=== PATIENT | male | born 1940 | race Two or more races ===

== ENCOUNTER 2018-05-19 09:33 | Emergency (ER) | payer OTHER ==
[~2018-05-19] VITALS: Ht 170.2 cm; Wt 77.1 kg
[2018-05-19 10:43] LABS: Basophils # (auto) 0 uL; Basophils % (auto) 0.4 % (0.0-2.0); Eosinophils # (auto) 0 uL; Eosinophils % (auto) 0.5 % (0.0-7.0); Hemoglobin 14.1 g/dL (13.5-17.5); Lymphocytes # (auto) 0.3 uL; Mean Corpuscular Hemoglobin 28.8 pg (28.0-32.0); Mean Corpuscular Hgb Conc. 33.5 g/dL (32.0-36.0); Monocytes # (auto) 0.3 uL; Monocytes % (auto) 5.6 % (0.0-12.0); Neutrophils # (auto) 5.1 uL; Neutrophils % (auto) 87.5 % (37.0-80.0); Platelet Count (auto) 199 10^3/uL (140-450); Red Blood Cells 4.89 10^6/uL (4.5-5.90); Red Cell Distribution Width 14.2 % (11.8-14.3); White Blood Cell 5.8 10^3/uL (4.4-10.8)
[2018-05-19 11:02] LABS: Alanine Aminotransferase 37 U/L (16-61); Albumin 3.5 g/dL (3.4-5.0); Anion Gap 7 (5-15); Aspartate Aminotransferase 24 U/L (15-37); BUN/Creatinine Ratio 17.5; Blood Urea Nitrogen 24 mg/dL (7-18); Calcium 7.9 mg/dL (8.5-10.1); Carbon Dioxide 22 mmol/L (21-32); Chloride 109 mmol/L (98-107); GFR Non-African American 54 mL/min; Glucose 107 mg/dL (74-106); Magnesium 2.1 mg/dL (1.6-2.6); Sodium 138 mmol/L (136-145)
[2018-05-19 11:07] LABS: Alkaline Phosphatase 90 U/L (45-117); Bilirubin, Total 0.4 mg/dL (0.2-1.0); Total Protein 7.2 g/dL (6.4-8.2)
[2018-05-19 11:08] LABS: GFR African American > 60 mL/min
[2018-05-19 11:36] LABS: Urine Bacteria NONE SEEN /hpf (None Seen); Urine Blood TRACE /uL (Negative); Urine Mucus FEW (None Seen); Urine Specific Gravity 1.027 (1.001-1.035); Urine WBC <1 /hpf (0 - 3)
[2018-05-19] MEDS ORDERED: SODIUM CHLORIDE 0.9% 1,000 ML IV ONE (12:12)
[2018-05-19 13:45] VITALS: BP 155/60
== END 2018-05-19 13:56 | disposition home or self-care (01) ==
LOC: ER 09:33
DX: E86.0 Dehydration (principal); R11.2 Nausea with vomiting, unspecified
CPT/HCPCS: 36415; 74176; 80053; 81001; 83735; 84484; 85025; 93005; 96360; 99284; J7030

== ENCOUNTER 2022-09-07 15:56 | Emergency (ER) | payer OTHER ==
[~2022-09-07] VITALS: Ht 170.2 cm; Wt 77.9 kg
[2022-09-07 16:15] VITALS: BP 176/71
[2022-09-07 16:51] LABS: Basophils # (auto) 0 10 ^3/uL (0-0.2); Basophils % (auto) 0.9 % (0.0-2.0); Eosinophils # (auto) 0.2 10 ^3/uL (0-0.8); Eosinophils % (auto) 3.2 % (0.0-7.0); Hematocrit 38.5 % (41.0-53.0); Hemoglobin 12.8 g/dL (13.5-17.5); Lymphocytes # (auto) 1.8 10 ^3/uL (0.4-5.4); Mean Corpuscular Hemoglobin 28.7 pg (28.0-32.0); Mean Corpuscular Hgb Conc. 33.2 g/dL (32.0-36.0); Mean Corpuscular Volume 86.4 fL (80.0-100.0); Monocytes # (auto) 0.4 10 ^3/uL (0-1.3); Monocytes % (auto) 8.1 % (0.0-12.0); Neutrophils # (auto) 2.8 10 ^3/uL (1.6-8.6); Neutrophils % (auto) 53.8 % (37.0-80.0); Nucleated Red Blood Cells % 0.1 %; Red Blood Cells 4.46 10^6/uL (4.5-5.90); Red Cell Distribution Width 13.9 % (11.8-14.3); White Blood Cell 5.2 10^3/uL (4.4-10.8)
[2022-09-07 17:08] LABS: Albumin 3.5 g/dL (3.4-5.0); Calcium 8.3 mg/dL (8.5-10.1); Magnesium 2.5 mg/dL (1.6-2.6); Potassium 3.9 mmol/L (3.5-5.1)
[2022-09-07 17:11] LABS: BUN/Creatinine Ratio 27.9 (10.0-20.0); Bilirubin, Total 0.2 mg/dL (0.2-1.0); Total Protein 7.2 g/dL (6.4-8.2)
[2022-09-07 18:33] LABS: Urine Bacteria NONE SEEN /hpf (None Seen); Urine Blood Negative /uL (Negative); Urine Specific Gravity 1.011 (1.001-1.035); Urine WBC 1 /hpf (0 - 3)
== END 2022-09-07 19:01 | disposition home or self-care (01) ==
LOC: ER 15:56
DX: R10.11 Right upper quadrant pain (principal)
CPT/HCPCS: 36415; 74176; 80053; 81001; 83690; 83735; 85025; 93005

== ENCOUNTER 2022-09-11 09:34 | Emergency (ER) | payer OTHER ==
[~2022-09-11] VITALS: Ht 170.2 cm; Wt 76.3 kg
[2022-09-11 10:00] VITALS: BP 147/89
[2022-09-11] MEDS ORDERED: TRIA0.02 TOP (10:18)
[2022-09-11] MEDS ORDERED: IBUP800T27 PO ×2 (10:18)
[2022-09-11] MEDS ORDERED: ACETAMINOPHEN 500 MG TAB PO ONE (10:30)
[2022-09-11] MEDS ORDERED: TRAM50TA2 PO (10:31)
== END 2022-09-11 10:38 | disposition home or self-care (01) ==
LOC: ER 09:34
DX: B02.9 Zoster without complications (principal)

== ENCOUNTER 2024-09-28 20:53 | Emergency (ER) | payer MEDICARE, OTHER ==
[~2024-09-28 20:53] MED LIST: TRAM50TA2 PO; TRIA0.02 TOP
--- NOTE | 2024-09-28 21:08 | ED.PDOC ---
History of Present Illness HPI Comments 84-year-old male who comes in with chief complaint of urinary retention. The patient states that he had prostate surgery on 07/13 and states that the Figueroa catheter has been inserted and removed a few times. The patient was saw his urologist yesterday and they did remove the Figueroa catheter but now the patient can not urinate. Despite trying in and out catheters does not seem to be working. At this time, the patient denies any other complaints. There has been no fever or chills. Time Seen by MD: 20:55 Primary Care Provider: Adilson Reviewed Notes: Nurses Notes, Medications, Allergies (No allergies to medications) Allergies: Coded Allergies: NO KNOWN ALLERGIES (Unverified , 05/19/18) Home Meds Active Scripts Tramadol Hcl (Tramadol Hcl) 50 Mg Tab, 50 MG PO BID, #20 TAB Prov:VESNA LARKIN 09/11/22 Triamcinolone Acetonide (Triamcinolone Acetonide) 0.025 % Cre, 1 APPLIC TOP BID, #30 GRAMS Prov:VESNA LARKIN 09/11/22 Information Source: Patient Mode of Arrival: Ambulatory Severity: Moderate Timing: Hours Duration: Since onset Prehospital treatment: None Associated signs and symptoms Urinary retention Past Medical History Past Medical History (Other): BPH Surgical History: Cholecystectomy Family History Family History: No family hx of Cancer, No family hx of DM, No family hx of Heart thais Social History Smoker: Non-Smoker Alcohol: Denies ETOH Use Drugs: Denies Drug Use Lives In: Home Constitutional: denies: chills, diaphoresis, fatigue, fever, malaise, sweats, weakness, others EENTM: denies: blurred vision, double vision, ear bleeding, ear discharge, ear drainage, ear pain, ear ringing, eye pain, eye redness, hearing loss, mouth pain, mouth swelling, nasal discharge, nose bleeding, nose congestion, nose pain, photophobia, tearing, throat pain, throat swelling, voice changes, others Respiratory: denies: cough, hemoptysis, orthopnea, SOB at rest, shortness of breath, SOB with excertion, stridor, wheezing, others Cardiovascular: denies: chest pain, dizzy spells, diaphoresis, Dyspnea on exertion, edema, irregular heart beat, left arm pain, lightheadedness, palpitations, PND, syncope, others Gastrointestinal: denies: abdomen distended, abdominal pain, blood streaked bowels, constipated, diarrhea, dysphagia, difficulty swallowing, hematemesis, melena, nausea, poor appetite, poor fluid intake, rectal bleeding, rectal pain, vomiting, others Genitourinary: reports: others (Urinary retention); denies: burning, dysuria, flank pain, frequency, hematuria, incontinence, penile discharge, penile sore, pain, testicle pain, testicle swelling, urgency Neurological: denies: dizziness, fainting, headache, left sided numbness, left sided weakness, numbness, paresthesia, pre-existing deficit, right sided numbness, right sided weakness, seizure, speech problems, tingling, tremors, weakness, others Musculoskeletal: denies: back pain, gout, joint pain, joint swelling, muscle pain, muscle stiffness, neck pain, others Integumetry: denies: bruises, change in color, change in hair/nails, dryness, laceration, lesions, lumps, rash, wounds, others Allergic/Immunocompromised: denies: Difficulty Healing, Frequent Infections, Hives, Itching, others Hematologic/Lymphatic: denies: anemia, blood clots, easy bleeding, easy bruising, swollen glands, others Endocrine: denies: excessive hunger, excessive sweating, excessive thirst, excessive urination, flushing, intolerance to cold, intolerance to heat, unexplained weight gain, unexplained weight loss, others Psychiatric: denies: anxiety, bipolar disorder, depression, hopeless, panic disorder, schizophrenia, sleepless, suicidal, others Physical Exam General Appearance: Mild Distress HEENT: Normal ENT Inspection, Pharynx Normal, TMs Normal Neck: Full Range of Motion, Non-Tender, Normal, Normal Inspection Respiratory: Chest Non-Tender, Lungs Clear, No Accessory Muscle Use, No Respiratory Distress, Normal Breath Sounds Cardiovascular: No Edema, No JVD, No Murmur, No Gallop, Normal Peripheral Pulses, Regular Rate/Rhythm Breast Exam: Deferred Gastrointestinal: No Organomegaly, No Pulsatile Mass, Normal Bowel Sounds, Soft, Suprapubic, Tenderness Genitalia: Deferred Pelvic: Deferred Rectal: Deferred Extremities: No calf tenderness, Normal capillary refill, Normal inspection, No rmal range of motion, Non-tender, No pedal edema Musculoskeletal : Apperance: Normal Neurologic: Alert, waste baler II-XII nml as Tested, No Motor Deficits, Normal Affect, Normal Mood, No Sensory Deficits Cerebellar Function: Normal Reflexes: Normal Skin: Dry, Normal Color, Warm Lymphatic: No Adenopathy Was a procedure done? Was a procedure done?: No Differential Dx Considerations may include: Urinary retention, UTI X-Ray, Labs, Meds, VS The patient was having a Figueroa catheter placed The patient had approximately 300 cc of urine output The patient was discharged The patient was follow up with the primary care doctor The patient will return to the emergency department's condition worsens. Time of 1ST Reevaluation: 21:05 Reevaluation 1ST: Improved Patient Education/Counseling: Diagnosis, Treatment, Prognosis, Need For Follow Up Family Education/Counseling: Diagnosis, Treatment, Prognosis, Need For Follow Up Departure 1 Departure Time of Disposition: 21:05 Impression: Primary Impression: Urinary retention Disposition: 01 HOME / SELF CARE / HOMELESS Condition: Fair Discharged With: Self, Spouse Critical Care Note Critical Care Time?: No Stability Stability form required: No Heart Score Heart Score: Heart Score Response (Comments) Value History N/A 0 EKG N/A 0 Age N/A 0 Risk Factors N/A 0 Troponin N/A 0 Total 0 BOSSMAN LOCKE MD September 28, 2024 21:08
[2024-09-28 21:15] VITALS: BP 125/69; PULSE 71; RESP 18; TEMP 97.5; O2SAT 94
[2024-09-28 21:35] LABS: Urine Bacteria None Seen /hpf (None Seen)
[2024-09-28 21:42] LABS: Urine Blood 3+ /uL (Negative); Urine Clarity Clear (Clear); Urine Color Light-Yellow (Yellow); Urine Mucus FEW (None Seen); Urine Protein, UAD TRACE (Negative); Urine Specific Gravity 1.025 (1.001-1.035); Urine Squamous Epithelial Cell None Seen /hpf (<5); Urine Urobilinogen Normal (Negative); Urine WBC 6 /HPF (0-3); Urine pH 5.5 (5.0-9.0)
== END 2024-09-28 21:33 | disposition home or self-care (01) ==
LOC: ER 20:53
DX: R33.9 Retention of urine, unspecified (principal); Z90.49 Acquired absence of other specified parts of digestive tract; Z87.898 Personal history of other specified conditions; Z79.899 Other long term (current) drug therapy
CPT/HCPCS: 51702; 81001

== ENCOUNTER 2024-10-29 00:41 | Inpatient (IN) | payer MEDICARE ==
[~2024-10-29] VITALS: Ht 167.6 cm; Wt 82.6 kg
[2024-10-29 01:49] LABS: Chloride 105 mmol/L (98-107); Potassium 3.7 mmol/L (3.5-5.1); Sodium 139 mmol/L (136-145)
[2024-10-29 01:50] LABS: Anion Gap 15 (5-15)
[2024-10-29 01:51] LABS: Calcium 9.2 mg/dL (8.7-10.4)
[2024-10-29] MEDS: fentaNYL CITRATE 100 MCG/2 ML VL IV ONE (01:51)
[2024-10-29 01:55] LABS: BUN/Creatinine Ratio 18.9 (10.0-20.0)
--- NOTE | 2024-10-29 01:59 | ED.PDOC ---
General HPI Comments 84 y/o M presents with c/c of urinary retention, with associated pelvic and back pain. Patient endorses on onset of symptoms 2-3 hours ago prior to arrival. Patient has a Figueroa catheter in place that is 4x months old. Pain is an 8/10 in severity. Denies any nausea, vomiting, hematuria, or further acute associated symptoms. Chief Complaint: Urinary Time Seen by MD: 01:10 Primary Care Provider: Dr. Chowdhury Reviewed notes: Nurses Notes, Medications, Allergies Allergies: Coded Allergies: NO KNOWN ALLERGIES (Unverified , 05/19/18) Home Meds Active Scripts Tramadol Hcl (Tramadol Hcl) 50 Mg Tab, 50 MG PO BID, #20 TAB Prov:VESNA LARKIN 09/11/22 Triamcinolone Acetonide (Triamcinolone Acetonide) 0.025 % Cre, 1 APPLIC TOP BID, #30 GRAMS Prov:VESNA LARKIN 09/11/22 Information Source: Patient Mode of Arrival: Ambulatory Severity: Moderate Inability to void: Complete Timing: Hours Duration: Since onset Prehospital treatment: None Onset: Spontaneous Symptoms: Inability to void, Other (pelvic and back pain ) Past Medical History Past Medical History (Other): BPH Surgical History: Cholecystectomy Surgical History (Other): Figueroa catheter Family History Family History: No family hx of Cancer, No family hx of DM, No family hx of Heart thais Social History Smoker: Non-Smoker Alcohol: Denies ETOH Use Drugs: Denies Drug Use Lives In: Home All Other Systems: Reviewed and Negative (Comprehensive systems review obtained and negative except for what is stated in the HPI.) Physical Exam General Appearance: No Apparent Distress, Normal HEENT: Normal ENT Inspection, Pharynx Normal, TMs Normal Neck: Full Range of Motion, Non-Tender, Normal, Normal Inspection Respiratory: Chest Non-Tender, Lungs Clear, No Accessory Muscle Use, No Respiratory Distress, Normal Breath Sounds Cardiovascular: No Edema, No JVD, No Murmur, No Gallop, Normal Peripheral Pulses, Regular Rate/Rhythm Breast Exam: Deferred Gastrointestinal: No Organomegaly, No Pulsatile Mass, Normal Bowel Sounds, Soft, Suprapubic (fullness and tenderness ), Tenderness (suprapubic region ) Genitalia: Other (in-place Figueroa catheter, with 30-40ml clear urine ) Pelvic: Deferred Rectal: Deferred Extremities: No calf tenderness, Normal capillary refill, Normal inspection, Normal range of motion, Non-tender, No pedal edema Musculoskeletal : Apperance: Normal Neurologic: Alert, accounting office manager II-XII nml as Tested, No Motor Deficits, Normal Affect, Normal Mood, No Sensory Deficits Cerebellar Function: Normal Reflexes: Normal Skin: Dry, Normal Color, Warm Lymphatic: No Adenopathy Was a procedure done? Was a procedure done?: No Differential Diagnosis Kidney stone (Female): N/A Kidney stone (Male): Aortic dissection, Appendicitis train, Bowel obstruction, Pyelonephritis, Renal failure, Strain, Urinary obstruction, Urolithiasis, Renal infarction, Urinary tract infection Penile/Scrotal: N/A Urinary Problem (Male): Bladder Outlet, Bladder Obstruction, Prostatitis, Plelonephritis, Post op Complications, Renal Failure, Urinary Retention, Urolithiasis, UTI Urinary Problem (Female): N/A X-Ray, Labs, Meds, VS Vital Signs Date Time Temp Pulse Resp B/P (MAP) Pulse Ox O2 Delivery O2 Flow Rate FiO2 10/29/24 03:48 100.3 100.3 10/29/24 03:37 101.4 111 18 135/82 (99) 96 101.4 10/29/24 03:07 101.4 97 18 135/60 (85) 96 101.4 10/29/24 02:13 78 18 96 Room Air* 0 21 10/29/24 02:13 101.0 68 18 118/78 (91) 97 101.0 10/29/24 01:54 102.2 89 19 112/63 (79) 90 102.2 10/29/24 00:55 98.8 103 20 141/72 (95) 94 98.8 Lab Test 10/29/24 03:20 10/29/24 01:17 10/29/24 01:13 Range/Units Lactic Acid Level Pending 4.4 *H 0.4-2.0 mmol/L White Blood Count 2.4 L 4.4-10.8 10^3/uL Red Blood Count 4.89 4.5-5.90 10^6/uL Hemoglobin 13.8 13.5-17.5 g/dL Hematocrit 41.8 41.0-53.0 % Mean Corpuscular Volume 85.6 80.0-100.0 fL Mean Corpuscular Hemoglobin 28.2 28.0-32.0 pg Mean Corpuscular Hemoglobin Concent 32.9 32.0-36.0 g/dL Red Cell Distribution Width 15.2 H 11.8-14.3 % Platelet Count 193 140-450 10^3/uL Mean Platelet Volume 8.5 6.9-10.8 fL Neutrophils (%) (Auto) 57.9 37.0-80.0 % Lymphocytes (%) (Auto) 39.5 10.0-50.0 % Monocytes (%) (Auto) 0.6 0.0-12.0 % Eosinophils (%) (Auto) 1.6 0.0-7.0 % Basophils (%) (Auto) 0.4 0.0-2.0 % Neutrophils # (Auto) 1.4 L 1.6-8.6 10 ^3/uL Lymphocytes # (Auto) 0.9 0.4-5.4 10 ^3/uL Monocytes # (Auto) 0 0-1.3 10 ^3/uL Eosinophils # (Auto) 0 0-0.8 10 ^3/uL Basophils # (Auto) 0 0-0.2 10 ^3/uL Nucleated Red Blood Cells 0.8 % Sodium Level 140 136-145 mmol/L Potassium Level 4.0 3.5-5.1 mmol/L Chloride Level 105 98-107 mmol/L Carbon Dioxide Level 20 20-31 mmol/L Anion Gap 15 5-15 Blood Urea Nitrogen 32 H 9-23 mg/dL Creatinine 1.42 H 0.700-1.30 mg/dL Glomerular Filtration Rate Calc 49 >90 mL/min BUN/Creatinine Ratio 22.5 H 10.0-20.0 Serum Glucose 111 H 74-106 mg/dL Calcium Level 9.0 8.7-10.4 mg/dL Total Bilirubin 0.3 0.2-1.0 mg/dL Aspartate Amino Transferase (AST) 26 <34 U/L Alanine Aminotransferase (ALT) 20 7-40 U/L Alkaline Phosphatase 120 H 46-116 U/L Total Protein 7.5 5.7-8.2 g/dL Albumin 4.7 3.2-4.8 g/dL Urine Color Colorless Yellow Urine Clarity Turbid H Clear Urine pH 5.5 5.0-9.0 Urine Specific [place] 1.015 1.001-1.035 Urine Protein Negative Negative Urine Ketones Negative Negative Urine Blood 2+ H Negative /uL Urine Nitrite 1+ H Negative Urine Bilirubin Negative Negative Urine Urobilinogen Normal Negative mg/dL Urine Leukocyte Esterase 3+ Negative /uL Urine RBC 31 0 - 3 /hpf Urine Microscopic WBC 46 H 0-3 /HPF Urine Squamous Epithelial Cells None seen <5 /hpf Urine Uric Acid Crystals Few None Seen /hpf Urine Bacteria Many H None Seen /hpf Urine Glucose Normal Normal mg/dL Current Medications Medications (Trade) Dose Ordered Sig/Nabila Route Start Time Stop Time Status Last Admin Acetaminophen (Tylenol Tablet) 650 mg ONCE ONCE PO 10/29/24 02:00 10/29/24 02:01 DC 10/29/24 02:00 Lactated Ringer's 2,000 ml @ 2,000 mls/hr ONCE ONCE IV 10/29/24 02:00 10/29/24 02:59 DC 10/29/24 02:00 Vancomycin HCl 200 ml @ 200 mls/hr ONCE ONCE IV 10/29/24 02:00 10/29/24 02:59 DC 10/29/24 02:00 Time of 1ST Reevaluation: 01:40 Reevaluation 1ST: Unchanged Patient Education/Counseling: Diagnosis, Treatment, Need For Follow Up Family Education/Counseling: No Family Present Additional Information Previous visits reviewed: September 28, 2024 encounter for urinary retention The following tests were ordered, and results were reviewed by me: CT abdomen/pelvis w/o contrast, UA, BMP, UA Additional Information was gathered from interviewing the following independent historians: N/A I reviewed and agreed with the following test results read by other providers: CT abdomen/pelvis w/o contrast I discussed treatment and results with medical personnel and: patient SEPSIS Sepsis Screen Date sepsis recognized/suspect: Oct 29, 2024 Time Sepsis recognized/suspect: 54 Recent Procedure: No On Antibiotic Therapy: No Respiratory Rate >20: No Heart Rate >90: Yes Temp<36 C (96.8 F) or >38.3 C: No SBP <90 or MAP <65 mmHG: No New Acute Mental Status Change: No Is the patient on CPAP, BIPAP,: No Physician Orders Ct Ab Pel Wo Con-No Oral Or Iv (10/29/24 01:23) Chest Portable (10/29/24 02:00) Accucheck (10/29/24 02:00) Blood Culture (10/29/24 02:00) Cefepime 1gm/ 50ml (Maxipime 1gm/50ml) (10/29/24 10:00) Notify Md If Map <65 Or Bp<90 (10/29/24 02:00) If Map<65 Start Vasopressor (10/29/24 02:00) Vital Signs Date Time Temp Pulse Resp B/P (MAP) Pulse Ox O2 Delivery O2 Flow Rate FiO2 10/29/24 03:48 100.3 100.3 10/29/24 03:37 101.4 111 18 135/82 (99) 96 101.4 10/29/24 03:07 101.4 97 18 135/60 (85) 96 101.4 10/29/24 02:13 78 18 96 Room Air* 0 21 10/29/24 02:13 101.0 68 18 118/78 (91) 97 101.0 10/29/24 01:54 102.2 89 19 112/63 (79) 90 102.2 10/29/24 00:55 98.8 103 20 141/72 (95) 94 98.8 Laboratory Tests Test 10/29/24 01:17 10/29/24 03:20 Lactic Acid Level 4.4 mmol/L (0.4-2.0) *H Pending White Blood Count 2.4 10^3/uL (4.4-10.8) L Medications Medications Dose Ordered Sig/Nabila Route Start Time Stop Time Status Last Admin Dose Admin Acetaminophen 650 mg ONCE ONCE PO 10/29/24 02:00 10/29/24 02:01 DC 10/29/24 02:00 Lactated Ringer's 2,000 ml @ 2,000 mls/hr ONCE ONCE IV 10/29/24 02:00 10/29/24 02:59 DC 10/29/24 02:00 Vancomycin HCl 200 ml @ 200 mls/hr ONCE ONCE IV 10/29/24 02:00 10/29/24 02:59 DC 10/29/24 02:00 Reassessment Post Fluid SEPSIS FOCUS EXAM(REASSESSMENT Sepsis reassessment focused exam completed. Date: 10/29/24 Time 02:38 Sepsis reassessment focused exam completed. Date: 10/29/24 Time 02:01 Departure 1 Departure Time of Disposition: 02:40 Impression: Primary Impression: Sepsis Qualified Codes: A41.9 - Sepsis, unspecified organism; R65.20 - Severe sepsis without septic shock; N17.9 - Acute kidney failure, unspecified Additional Impressions: Pelvic pain UTI (urinary tract infection) Qualified Codes: N30.00 - Acute cystitis without hematuria Disposition: ADMITTED INPATIENT Admit to: Med Surg Condition: Serious Discharged With: Self, Relative Critical Care Note Critical Care Time?: Yes (55 min-critical care time only) Critical care comment: Due to concerns for patients condition deteriorating, the care required my highest level of attention and readiness to intervene. I assessed the patient, reviewed the medical records, ordered the appropriate tests and treatments, then reassessed for results and responsiveness. I communicated with medical personnel and consultants and formulated a plan of care. Total critical care time excludes any procedures Stability Stability form required: No Heart Score Heart Score: Heart Score Response (Comments) Value History N/A 0 EKG N/A 0 Age N/A 0 Risk Factors N/A 0 Troponin N/A 0 Total 0 I personally scribed for LAYLA ADRIAN MD ([email or web address]) on 10/29/24 at 01:59. Electronically submitted by Ray Escobedo ([email or web address]). LAYLA ADRIAN MD Oct 29, 2024 01:59
[2024-10-29] MEDS: LACTATED RINGER'S 2,000 ML IV ONE (02:00)
[2024-10-29] MEDS: VANCOMYCIN 1GM/200ML PM 200 ML IV ONE (02:00)
[2024-10-29] MEDS: ACETAMINOPHEN 325 MG TAB PO ONE (02:00)
[2024-10-29 02:01] LABS: Blood Urea Nitrogen 27 mg/dL (9-23); Carbon Dioxide 19 mmol/L (20-31); Glucose 110 mg/dL (74-106)
[2024-10-29 02:13] VITALS: PULSE 78; RESP 18; O2SAT 96
[2024-10-29 02:29] LABS: Urine Protein, UAD Negative (Negative)
--- NOTE | 2024-10-29 02:31 | DVH ---
CHEST RADIOGRAPH Indication: sepsis Technique: Single frontal view of the chest was obtained COMPARISON: None FINDINGS: Lines and Tubes: None Lungs: Clear Pleura: No effusion. No pneumothorax. Cardiomediastinal contours: Unremarkable Bones: Unremarkable IMPRESSION: 1. No acute disease.
--- NOTE | 2024-10-29 02:35 | DVH ---
Exam: CT CT AB PEL WO CON-NO ORAL OR IV History: lower abdominal pain Comparison Study: CT CT AB PEL WO CON-NO ORAL OR IV on DOS: 09/07/22 Technique: Multidetector spiral CT of the abdomen was performed from lung bases to pubic symphysis. I maging was performed without IV contrast. Axial, coronal and sagittal multiplanar reformats were obta ined from the axial data set by the technologist. Radiation Dose : 1. Abdomen/Pelvis: CTDIvol 12.58 mGy, DLP 684.14 mGy*cm. Findings: Evaluation of solid organs is limited due to lack of intravenous contrast use. Lung Bases: No acute or significant lung base finding. Borderline cardiomegaly. No pleural or perica rdial effusion. Liver: The liver is mildly enlarged, measuring 19.2 cm in craniocaudal dimension. No focal lesions. Gallbladder and Biliary Tree: Status post cholecystectomy. Spleen: Unremarkable Pancreas: The pancreas is grossly normal in appearance. Adrenal Glands: Unremarkable Kidneys: Mild bilateral renal atrophy and cortical thinning.Kidneys are otherwise grossly normal with out calculi or hydronephrosis. Multiple bilateral renal cortical cysts, the largest of which measures 8.6 cm on the right. Bladder: Grossly unremarkable for degree of distention. Figueroa catheter. Bowel: Small hiatal hernia. The stomach is grossly normal in appearance. Small bowel and colon are no rmal in caliber and distribution. The appendix is normal. Ascites: Absent Lymphadenopathy: No mesenteric, retroperitoneal or periportal lymphadenopathy. Abdominal Wall and Mesentery: Unremarkable. Vasculature: The visualized abdominal aorta is normal in size and caliber. Atherosclerotic vascular c alcifications. Evaluation of abdominal and pelvic vessels is limited due to lack of intravenous cont rast. Pelvic Organs: Unremarkable Musculoskeletal: No aggressive focal bony lesions, acute fractures or dislocation. Hardware within th e bilateral hips with associated beam hardening artifact which partially obscures the findings of the pelvis. IMPRESSION: 1. No acute abdominal or pelvic findings. 2. Hepatomegaly. 3. Mild bilateral renal atrophy and cortical thinning. Radiation optimization: All CT scans at this facility use at least one of these dose optimization rebeka hniques: automated exposure control mA and/or kV adjustment per patient size (includes targeted exam s where dose is matched to clinical indication) or iterative reconstruction.
[2024-10-29 02:36] LABS: Hematocrit 41.8 % (41.0-53.0); Hemoglobin 13.8 g/dL (13.5-17.5); Mean Corpuscular Hemoglobin 28.2 pg (28.0-32.0); Mean Corpuscular Volume 85.6 fL (80.0-100.0); Nucleated Red Blood Cells % 0.8 %
[2024-10-29 02:40] LABS: Alanine Aminotransferase 20 U/L (7-40); Albumin 4.7 g/dL (3.2-4.8); Anion Gap 15 (5-15); BUN/Creatinine Ratio 22.5 (10.0-20.0); Calcium 9.0 mg/dL (8.7-10.4); Carbon Dioxide 20 mmol/L (20-31); Chloride 105 mmol/L (98-107); Potassium 4.0 mmol/L (3.5-5.1); Sodium 140 mmol/L (136-145); Total Protein 7.5 g/dL (5.7-8.2)
[2024-10-29 02:41] LABS: Lactic Acid w/Reflex 4.4 mmol/L (0.4-2.0)
[2024-10-29 02:42] LABS: Alkaline Phosphatase 120 U/L (46-116); Bilirubin, Total 0.3 mg/dL (0.2-1.0); Blood Urea Nitrogen 32 mg/dL (9-23); Glucose 111 mg/dL (74-106)
[2024-10-29] MEDS ORDERED: ACETAMINOPHEN 325 MG TAB PO PRN (04:30)
[2024-10-29] MEDS ORDERED: ONDANSETRON HCL 4 MG/2 ML VIAL IV PRN (04:30)
--- NOTE | 2024-10-29 04:44 | DVHHP2 ---
History of Present Illness Reason for Visit: Figueroa catheter malfunction History of Present Illness 84-year-old male presents for evaluation of leaking Figueroa catheter. Patient reports noticing urine coming out from around the Figueroa catheter. He also reports fever over the past couple of days. Reports having flank pain. Denies any other acute complaints. Past Medical History BPH, hypertension Past Surgical History Prostate Family History Noncontributory Smoke: No ALCOHOL: none Drugs: None Lives: with Family Review of Systems Review of Systems Review of systems are currently negative otherwise addressed in HPI. Allergies: Coded Allergies: NO KNOWN ALLERGIES (Unverified , 05/19/18) Medications Current Medications Medications Dose Ordered Sig/Nabila Route Start Time Stop Time Status Last Admin Dose Admin Cefepime HCl 50 ml @ 12.5 mls/hr Q12HR IV 10/29/24 10:00 Exam Vital Signs Vital Signs Date Time Temp Pulse Resp B/P (MAP) Pulse Ox O2 Delivery O2 Flow Rate FiO2 10/29/24 03:48 100.3 100.3 10/29/24 03:37 111 18 135/82 (99) 96 10/29/24 02:13 Room Air* 0 21 Exam Gen: 84-year-old male in mild distress. Skin: Warm, dry, normal color and texture, no rash. HEENT: Normocephalic atraumatic, mucous membranes moist and pink. Neck: Cervical and supraclavicular nodes normal without enlargement, trachea is midline, thyroid gland is normal without masses. Pulmonary: Clear to auscultation and percussion bilaterally. Cardiac: Regular rate and rhythm. No murmur Abdomen: Soft, nontender, nondistended, bowel sounds present all 4 quadrants, no guarding, no rigidity, no organomegaly. Extremities: No cyanosis, clubbing, no edema Neuro: Cranial nerves II through XII grossly intact, normal affect and speech, no focal motor deficits. Labs/Xrays ORDERING PHYSICIAN: LAYLA ADRIAN MD PROCEDURE(s): ABPL - CT AB PEL WO CON-NO ORAL OR IV REASON: lower abdominal pain ORDER NUMBER(s): [id number], ACCESSION NUMBER(s): [id number] Exam: CT CT AB PEL WO CON-NO ORAL OR IV History: lower abdominal pain Comparison Study: CT CT AB PEL WO CON-NO ORAL OR IV on DOS: 09/07/22 Technique: Multidetector spiral CT of the abdomen was performed from lung bases to pubic symphysis. Imaging was performed without IV contrast. Axial, coronal and sagittal multiplanar reformats were obtained from the axial data set by the technologist. Radiation Dose : 1. Abdomen/Pelvis: CTDIvol 12.58 mGy, DLP 684.14 mGy*cm. Findings: Evaluation of solid organs is limited due to lack of intravenous contrast use. Lung Bases: No acute or significant lung base finding. Borderline cardiomegaly. No pleural or pericardial effusion. Liver: The liver is mildly enlarged, measuring 19.2 cm in craniocaudal dimension. No focal lesions. Gallbladder and Biliary Tree: Status post cholecystectomy. Spleen: Unremarkable Pancreas: The pancreas is grossly normal in appearance. Adrenal Glands: Unremarkable Kidneys: Mild bilateral renal atrophy and cortical thinning.Kidneys are otherwise grossly normal without calculi or hydronephrosis. Multiple bilateral renal cortical cysts, the largest of which measures 8.6 cm on the right. Bladder: Grossly unremarkable for degree of distention. Figueroa catheter. Bowel: Small hiatal hernia. The stomach is grossly normal in appearance. Small bowel and colon are normal in caliber and distribution. The appendix is normal. Ascites: Absent Lymphadenopathy: No mesenteric, retroperitoneal or periportal lymphadenopathy. Abdominal Wall and Mesentery: Unremarkable. Vasculature: The visualized abdominal aorta is normal in size and caliber. Atherosclerotic vascular calcifications. Evaluation of abdominal and pelvic vessels is limited due to lack of intravenous contrast. Pelvic Organs: Unremarkable Musculoskeletal: No aggressive focal bony lesions, acute fractures or dislocation. Hardware within the bilateral hips with associated beam hardening artifact which partially obscures the findings of the pelvis. IMPRESSION: 1. No acute abdominal or pelvic findings. 2. Hepatomegaly. 3. Mild bilateral renal atrophy and cortical thinning. Radiation optimization: All CT scans at this facility use at least one of these dose optimization techniques: automated exposure control mA and/or kV adjustment per patient size (includes targeted exams where dose is matched to clinical indication) or iterative reconstruction. Labs Test 10/29/24 03:20 10/29/24 01:17 10/29/24 01:13 Range/Units Lactic Acid Level 3.5 *H 0.4-2.0 mmol/L White Blood Count 2.4 L 4.4-10.8 10^3/uL Red Blood Count 4.89 4.5-5.90 10^6/uL Hemoglobin 13.8 13.5-17.5 g/dL Hematocrit 41.8 41.0-53.0 % Mean Corpuscular Volume 85.6 80.0-100.0 fL Mean Corpuscular Hemoglobin 28.2 28.0-32.0 pg Mean Corpuscular Hemoglobin Concent 32.9 32.0-36.0 g/dL Red Cell Distribution Width 15.2 H 11.8-14.3 % Platelet Count 193 140-450 10^3/uL Mean Platelet Volume 8.5 6.9-10.8 fL Neutrophils (%) (Auto) 57.9 37.0-80.0 % Lymphocytes (%) (Auto) 39.5 10.0-50.0 % Monocytes (%) (Auto) 0.6 0.0-12.0 % Eosinophils (%) (Auto) 1.6 0.0-7.0 % Basophils (%) (Auto) 0.4 0.0-2.0 % Neutrophils # (Auto) 1.4 L 1.6-8.6 10 ^3/uL Lymphocytes # (Auto) 0.9 0.4-5.4 10 ^3/uL Monocytes # (Auto) 0 0-1.3 10 ^3/uL Eosinophils # (Auto) 0 0-0.8 10 ^3/uL Basophils # (Auto) 0 0-0.2 10 ^3/uL Nucleated Red Blood Cells 0.8 % Sodium Level 140 136-145 mmol/L Potassium Level 4.0 3.5-5.1 mmol/L Chloride Level 105 98-107 mmol/L Carbon Dioxide Level 20 20-31 mmol/L Anion Gap 15 5-15 Blood Urea Nitrogen 32 H 9-23 mg/dL Creatinine 1.42 H 0.700-1.30 mg/dL Glomerular Filtration Rate Calc 49 >90 mL/min BUN/Creatinine Ratio 22.5 H 10.0-20.0 Serum Glucose 111 H 74-106 mg/dL Calcium Level 9.0 8.7-10.4 mg/dL Total Bilirubin 0.3 0.2-1.0 mg/dL Aspartate Amino Transferase (AST) 26 <34 U/L Alanine Aminotransferase (ALT) 20 7-40 U/L Alkaline Phosphatase 120 H 46-116 U/L Total Protein 7.5 5.7-8.2 g/dL Albumin 4.7 3.2-4.8 g/dL Urine Color Colorless Yellow Urine Clarity Turbid H Clear Urine pH 5.5 5.0-9.0 Urine Specific [place] 1.015 1.001-1.035 Urine Protein Negative Negative Urine Ketones Negative Negative Urine Blood 2+ H Negative /uL Urine Nitrite 1+ H Negative Urine Bilirubin Negative Negative Urine Urobilinogen Normal Negative mg/dL Urine Leukocyte Esterase 3+ Negative /uL Urine RBC 31 0 - 3 /hpf Urine Microscopic WBC 46 H 0-3 /HPF Urine Squamous Epithelial Cells None seen <5 /hpf Urine Uric Acid Crystals Few None Seen /hpf Urine Bacteria Many H None Seen /hpf Urine Glucose Normal Normal mg/dL Assessment/Plan Assessment/Plan Assessment Complicated UTI BPH Chronic kidney disease secondary to the above Plan Admit the patient to [facility] to the hospitalist Chanel Urine bacterial culture pending Felixepsuleimann Resume home medications Continue treatment per orders. Plan discussed with: Patient My Orders Orders - TORSTEN BRIGGS [facility] Procedure Category Date Status Time Urine Bacterial GYPSY 10/29/24 Logged Culture 04:26 Ceftriaxone 1gm/50ml PHA 10/29/24 Logged D5w (Rocephin) 09:00 Atorvastatin (Lipitor) PHA 10/29/24 Logged 22:00 Tamsulosin PHA 10/29/24 Logged Hydrochloride (Flomax) 18:00 Losartan Tablet PHA 10/29/24 Logged (Cozaar Tablet) 10:00 Admit ADMIT 10/29/24 Transmitted 04:26 Renal DIET 10/29/24 Transmitted Standard(2gna,3gk,Lopho) Breakfast Hydrocodone-Acet PHA 10/29/24 Logged 5/325mg Tab (Mineral 04:30 Ondansetron Hcl PHA 10/29/24 Logged (Zofran) 04:30 Complete Blood Count LAB 10/30/24 Verified 04:00 Condition: Stable SHADE 10/29/24 In Process 04:26 Acetaminophen Tablet PHA 10/29/24 Logged (Tylenol Tablet) 04:30 Bedrest With Bathroom SHADE 10/29/24 In Process Privileg 04:26 Basic Metabolic Panel LAB 10/30/24 Verified 04:00 Date of Service: Oct 29, 2024 Billing Provider: TORSTEN BRIGGS Common Visit Codes: [id number] INP/OBS CARE (HIGH) TORSTEN BRIGGS Oct 29, 2024 04:44
[2024-10-29] MEDS: IBUPROFEN 800 MG TAB PO ONE (04:46)
[2024-10-29 07:30] VITALS: PULSE 80; RESP 17; O2SAT 98
[2024-10-29] MEDS: cefTRIAXone 1GM/50ML D5W 50 ML IV SCH (08:41)
[2024-10-29] MEDS: CEFEPIME 1GM/ 50ML 50 ML IV SCH (09:43)
[2024-10-29] MEDS: LOSARTAN POTASSIUM 25 MG TAB PO SCH (10:00)
[2024-10-29] MEDS: HYDROcodone-ACET 5/325MG TAB PO PRN (14:04)
[2024-10-29] MEDS: TAMSULOSIN HYDROCHLORIDE 0.4 MG CAP PO SCH (17:42)
[2024-10-29 17:59] VITALS: BP 103/57; PULSE 71; RESP 12; TEMP 97.8; O2SAT 94
[2024-10-29] MEDS: ATORVASTATIN 20 MG TAB PO SCH (21:19)
[2024-10-29 22:10] VITALS: BP 115/65; PULSE 90; RESP 19; TEMP 98.8; O2SAT 95
[2024-10-30] VITALS (8 sets, daily range): BP systolic 90–123; BP diastolic 50–73; PULSE 78–86; RESP 15–18; TEMP 98.2–99.1; O2SAT 91–98
[2024-10-30 06:51] LABS: Chloride 105 mmol/L (98-107); Potassium 4.1 mmol/L (3.5-5.1); Sodium 138 mmol/L (136-145)
[2024-10-30 06:52] LABS: Anion Gap 13 (5-15); Carbon Dioxide 20 mmol/L (20-31)
[2024-10-30 06:57] LABS: BUN/Creatinine Ratio 17.0 (10.0-20.0); Glucose 99 mg/dL (74-106)
[2024-10-30 07:03] LABS: Blood Urea Nitrogen 42 mg/dL (9-23); Calcium 8.5 mg/dL (8.7-10.4)
[2024-10-30 09:40] LABS: Hematocrit 33.0 % (41.0-53.0); Hemoglobin 11.1 g/dL (13.5-17.5); Mean Corpuscular Hemoglobin 27.9 pg (28.0-32.0); Mean Corpuscular Volume 83.2 fL (80.0-100.0)
[2024-10-30 11:34] LABS: Total Cells Counted 100.0 (100)
--- NOTE | 2024-10-30 12:19 | DVHPN2 ---
Subjective The patient is seen and examined at bedside, no complain of pain today. Reviewed: Care Plan, H&P, Labs, Medications, Previous Orders, Radiology Changes from previous H/P or p: No Changes Objective Vitals Vital Signs Date Time Temp Pulse Resp B/P (MAP) Pulse Ox O2 Delivery O2 Flow Rate FiO2 10/30/24 09:00 98.2 79 17 102/62 (75) 93 98.2 10/29/24 22:10 Room Air* 0 21 Intake/Output Intake and Output 10/30/24 07:00 Output Total 100 ml Balance -100 ml Output Urine Total 100 ml General Appearance: Alert, Oriented X3, Cooperative, No acute distress HEENT: Atraumatic, PERRLA, EOMI, Mucous membr. moist/pink Neck: Supple Lungs: Clear to auscultation, Normal air movement Cardiovascular: Regular rate, Normal S1, Normal S2, No murmurs, Gallops, Rubs Abdomen: Normal bowel sounds, Soft, No tenderness Neuro: Cranial nerves 3-12 NL Psych/Mental Status: Mental status NL Medications Current Medications Medications Dose Ordered Sig/Nabila Route Start Time Stop Time Status Last Admin Dose Admin Cefepime HCl 50 ml @ 12.5 mls/hr Q12HR IV 10/29/24 10:00 10/29/24 21:17 12.5 MLS/HR Ceftriaxone Sodium 50 ml @ 100 mls/hr DAILY@09 IV 10/29/24 09:00 10/30/24 09:00 100 MLS/HR Atorvastatin Calcium 20 mg HS PO 10/29/24 22:00 10/29/24 21:19 20 MG Tamsulosin HCl 0.4 mg QPM PO 10/29/24 18:00 10/29/24 17:42 0.4 MG Losartan Potassium 25 mg DAILY PO 10/29/24 10:00 Acetaminophen/ Hydrocodone Bitart 1 tab Q4HP PRN PO 10/29/24 04:30 10/29/24 14:04 1 TAB Ondansetron HCl 4 mg Q4HP PRN IV 10/29/24 04:30 Acetaminophen 650 mg Q6HP PRN PO 10/29/24 04:30 Laboratory Results Laboratory Tests 10/30/24 06:07 10/30/24 08:56 Chemistry Test 10/30/24 06:07 Calcium Level 8.5 mg/dL (8.7-10.4) L Urinalysis Test 10/29/24 01:13 Urine Color Colorless (Yellow) Urine Clarity Turbid (Clear) H Urine pH 5.5 (5.0-9.0) Urine Specific [place] 1.015 (1.001-1.035) Urine Protein Negative (Negative) Urine Ketones Negative (Negative) Urine Blood 2+ /uL (Negative) H Urine Nitrite 1+ (Negative) H Urine Bilirubin Negative (Negative) Urine Urobilinogen Normal mg/dL (Negative) Urine Leukocyte Esterase 3+ /uL (Negative) Urine RBC 31 /hpf (0 - 3) Urine Microscopic WBC 46 /HPF (0-3) H Urine Squamous Epithelial Cells None seen /hpf (<5) Urine Uric Acid Crystals Few /hpf (None Seen) Urine Bacteria Many /hpf (None Seen) H Urine Glucose Normal mg/dL (Normal) Microbiology Microbiology Date/Time Source Procedure Growth Status 10/29/24 02:25 Blood Blood Culture - Preliminary Resulted 10/29/24 01:13 Voided Urine Urine Culture - Preliminary Resulted Labs and/or images reviewed: Labs reviewed by me Assessment/Plan Assessment/Plan Complicated UTI BPH Chronic kidney disease stage III Continuing current management. Continuing with Rocephin. DC cefepime because is a duplicate treatment. Urine preliminary report showed Gram-negative bacteria. We will follow up. This medical document was created using an electronic medical record system with [employer] direct computerized dictation system. Although this document has been carefully reviewed, there may still be some phonetic and typographical errors. These areas are purely typographical due to imperfections of the software programs, and do not reflect any compromise in the patient's medical care. Plan discussed with: Patient, Spouse My Orders Orders - MARIAH GAVIN MD Procedure Category Date Status Time Cardiac DIET 10/29/24 Transmitted Diet-2gna,Lofat,Lochol Lunch Date of Service: Oct 30, 2024 Billing Provider: MARIAH GAVIN MD Common Visit Codes: [id number] INP/OBS CARE(HIGH) MARIAH GAVIN MD Oct 30, 2024 12:19
--- NOTE | 2024-10-30 12:28 | MEDREC ---
[facility] Intervention Section I [facility] Intervention: Duplication of therapy (DUPLICATION CEFTRIAXONE / CEFEPIME- PLEASE CONSIDER D/C ONE OF THEM ) ANGELITA OSCAR PHARMACIST Oct 30, 2024 12:28
[2024-10-31 01:00] VITALS: BP 115/63; PULSE 79; RESP 14; TEMP 99; O2SAT 92
[2024-10-31 05:00] VITALS: BP 136/77; PULSE 78; RESP 14; TEMP 99.2; O2SAT 91
[2024-10-31 08:20] VITALS: PULSE 72; RESP 18; O2SAT 95
[2024-10-31 09:00] VITALS: BP 137/75; PULSE 72; RESP 18; TEMP 97.8; O2SAT 95
[2024-10-31 12:32] VITALS: BP 129/68; PULSE 80; RESP 14; TEMP 98.2; O2SAT 97
[2024-10-31] MEDS ORDERED: NITR-52 PO ×2 (13:53)
--- NOTE | 2024-10-31 13:54 | DVHDS2 ---
Discharge Summary Date of Admission Oct 29, 2024 at 04:26 Date of Discharge: Oct 31, 2024 Admitting Diagnosis Complicated UTI BPH Chronic kidney disease stage III Labs/Diagnostic Data: Laboratory Results Test 10/30/24 08:56 10/30/24 06:07 10/29/24 04:26 10/29/24 03:20 White Blood Count 22.2 10^3/uL (4.4-10.8) Red Blood Count 3.97 10^6/uL (4.5-5.90) Hemoglobin 11.1 g/dL (13.5-17.5) Hematocrit 33.0 % (41.0-53.0) Mean Corpuscular Volume 83.2 fL (80.0-100.0) Mean Corpuscular Hemoglobin 27.9 pg (28.0-32.0) Mean Corpuscular Hemoglobin Concent 33.5 g/dL (32.0-36.0) Red Cell Distribution Width 15.0 % (11.8-14.3) Platelet Count 102 10^3/uL (140-450) Mean Platelet Volume 9.0 fL (6.9-10.8) Neutrophils (%) (Auto) % (37.0-80.0) Lymphocytes (%) (Auto) % (10.0-50.0) Monocytes (%) (Auto) % (0.0-12.0) Basophils (%) (Auto) % (0.0-2.0) Neutrophils # (Auto) 10 ^3/uL (1.6-8.6) Lymphocytes # (Auto) 10 ^3/uL (0.4-5.4) Monocytes # (Auto) 10 ^3/uL (0-1.3) Differential Total Cells Counted 100.0 (100) Neutrophils % (Manual) 92 (37.0-80.0) Band Neutrophils % (Manual) 0 Lymphocytes % (Manual) 3 (10.0-50.0) Monocytes % (Manual) 5 (0-12) Eosinophils % (Manual) 0 (0-7) Basophils % (Manual) 0 (0.0-2.0) Metamyelocytes % (manual) 0 Myelocytes % (Manual) 0 Promyelocytes % (Manual) 0 Blast Cells % (Manual) 0 Reactive Lymphocytes 0 Platelet Estimate Decreased Sodium Level 138 mmol/L (136-145) Potassium Level 4.1 mmol/L (3.5-5.1) Chloride Level 105 mmol/L (98-107) Carbon Dioxide Level 20 mmol/L (20-31) Anion Gap 13 (5-15) Blood Urea Nitrogen 42 mg/dL (9-23) Creatinine 2.47 mg/dL (0.700-1.30) Glomerular Filtration Rate Calc 25 mL/min (>90) BUN/Creatinine Ratio 17.0 (10.0-20.0) Serum Glucose 99 mg/dL (74-106) Calcium Level 8.5 mg/dL (8.7-10.4) POC Glucose 110 mg/dl (70-106) Lactic Acid Level 3.5 mmol/L (0.4-2.0) Test 10/29/24 01:17 10/29/24 01:13 Eosinophils (%) (Auto) 1.6 % (0.0-7.0) Eosinophils # (Auto) 0 10 ^3/uL (0-0.8) Basophils # (Auto) 0 10 ^3/uL (0-0.2) Nucleated Red Blood Cells 0.8 % Total Bilirubin 0.3 mg/dL (0.2-1.0) Aspartate Amino Transferase (AST) 26 U/L (<34) Alanine Aminotransferase (ALT) 20 U/L (7-40) Alkaline Phosphatase 120 U/L (46-116) Total Protein 7.5 g/dL (5.7-8.2) Albumin 4.7 g/dL (3.2-4.8) Urine Color Colorless (Yellow) Urine Clarity Turbid (Clear) Urine pH 5.5 (5.0-9.0) Urine Specific [place] 1.015 (1.001-1.035) Urine Protein Negative (Negative) Urine Ketones Negative (Negative) Urine Blood 2+ /uL (Negative) Urine Nitrite 1+ (Negative) Urine Bilirubin Negative (Negative) Urine Urobilinogen Normal mg/dL (Negative) Urine Leukocyte Esterase 3+ /uL (Negative) Urine RBC 31 /hpf (0 - 3) Urine Microscopic WBC 46 /HPF (0-3) Urine Squamous Epithelial Cells None seen /hpf (<5) Urine Uric Acid Crystals Few /hpf (None Seen) Urine Bacteria Many /hpf (None Seen) Urine Glucose Normal mg/dL (Normal) Other Laboratory Tests 10/30/24 08:56 7/1/25 06:07 Brief Hx & Hospital Course: This is an 84 years old male with past medical history benign prostate hypertrophy, chronic indwelling Figueroa catheterization come to emergency department because of urine coming out of his Figueroa catheterization. The patient was admitted. Figueroa was change. Urine culture and blood culture showed E coli. The patient was on IV antibiotic with Rocephin. Today the patient doing better. No fever or chill. More alert awake. I am going to discharge him home. Advised him to follow up with primary care physician 1-2 weeks. Activity as tolerated. Diet per home diet. Follow up with urologist per schedule. Physical exam: HEENT: Normocephalic atraumatic pupils equal react to light and accommodation. Extraocular muscles intact, conjunctiva pink, oropharynx moist, no thrush, no exudate. Lymphatic: No lymphadenopathy Cardiovascular exam: S1, S2 was heard. No murmurs, rubs, gallops Lung: Clear on auscultation bilaterally, no wheeze, rale, rhonchi. GI: Abdominal soft, nondistended, nontenderness, positive bowel sounds. Extremity: No crepitus, cyanosis, edema. Pedal pulses present bilateral. Full range of motion. Skin: Normal turgor, no rash. Psych: Alert, oriented x3. Neurology: No focal deficits, cranial nerve II to XII grossly intact. This medical document was created using an electronic medical record system with [employer] direct computerized dictation system. Although this document has been carefully reviewed, there may still be some phonetic and typographical errors. These areas are purely typographical due to imperfections of the software programs, and do not reflect any compromise in the patient's medical care. Condition at Discharge: Stable Final Diagnosis/Problems List Complicated UTI with E coli BPH Chronic kidney disease stage III Bacteremia with E coli Discharge Disposition: Home Discharge Instruct/Medications Diet: Cardiac 2g Na,low cholest Activity: No Restrictions, As Tolerated Follow Up/Referral: pcp 1-2 week urology per schedule Scheduled Ciprofloxacin Hcl (Cipro), 500 MG PO BID Nitrofurantoin (Nitrofurantoin), 1 CAP PO BID Tramadol Hcl (Tramadol Hcl), 50 MG PO BID Triamcinolone Acetonide (Triamcinolone Acetonide), 1 APPLIC TOP BID Discharge Statement: "Patient was advised to return to the ER or call 911 if any headaches, dizziness, shortness of breath, chest pain, abdominal pain, bleeding, fevers, or worsening of medical condition. Patient was counseled about treatment plan, medications, possible side effects, patientverbalized understanding. All questions were answered to the best of my ability. This discharge took greater then 30 minutes in planning, reviewing documentation, counseling the patient, and discussing with other team members." ASSESSMENT ASSESSMENT Assessment UTI Date of Service: Oct 31, 2024 Billing Provider: MARIAH GAVIN MD Common Visit Codes: [id number] DISCH DAY >30min MARIAH GAVIN MD Oct 31, 2024 13:54
[2024-10-31 14:48] VITALS: BP 137/75
== END 2024-10-31 16:13 | disposition home or self-care (01) | DRG 872 ==
LOC: ER 00:41 → OVERFLOW 04:26 → WEST WING 22:10
PROVIDERS: ADMIT Internal Medicine; ATTEND Internal Medicine
DX: A41.9 Sepsis, unspecified organism (principal); N39.0 Urinary tract infection, site not specified; N18.30 Chronic kidney disease, stage 3 unspecified; N40.1 Benign prostatic hyperplasia with lower urinary tract symptoms; R33.8 Other retention of urine; I12.9 Hypertensive chronic kidney disease with stage 1 through stage 4 chronic kidney disease, or unspecified chronic kidney disease; Z90.49 Acquired absence of other specified parts of digestive tract
CPT/HCPCS: 36415; 71045; 74176; 80048; 80053; 81001; 82962; 83605; 85007; 85025; 85027; 87040; 87077; 87086; 87088; 87186; 96365; 99291; G0378

== ENCOUNTER 2024-11-02 01:39 | Emergency (ER) | payer MEDICARE ==
[~2024-11-02] VITALS: Ht 170.2 cm; Wt 76.6 kg
[~2024-11-02 01:39] MED LIST changes: +NITR-52 PO
[2024-11-02 04:27] LABS: Urine Budding Yeast OCCASIONAL /hpf (None Seen); Urine Protein, UAD TRACE (Negative); Urine WBC Clumps PRESENT /hpf (None Seen)
[2024-11-02] MEDS ORDERED: CIPR-173 PO (04:46)
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
[2024-11-02 04:56] VITALS: BP 177/86; PULSE 70; RESP 18; TEMP 98; O2SAT 96
== END 2024-11-02 05:26 | disposition home or self-care (01) ==
LOC: ER 01:39
DX: N39.0 Urinary tract infection, site not specified (principal); Z90.49 Acquired absence of other specified parts of digestive tract; Z79.899 Other long term (current) drug therapy
CPT/HCPCS: 51702; 81001

== ENCOUNTER 2024-11-08 16:35 | Inpatient (IN) | payer MEDICARE ==
[~2024-11-08] VITALS: Ht 170.2 cm; Wt 77.8 kg
[~2024-11-08 16:35] MED LIST changes: +CIPR-173 PO
[2024-11-08 19:44] LABS: Urine Protein, UAD 1+ (Negative); Urine WBC Clumps PRESENT /hpf (None Seen)
--- NOTE | 2024-11-08 20:07 | ED.PDOC ---
General HPI Comments 84-year-old male with a history of indwelling Figueroa catheter secondary to urinary retention from prostate disease brought in by family complaining of suprapubic pain and an obstructed Figueroa catheter for the last 2-1/2 hours. Patient was seen here on 11/02/2024 for the same complaint. The catheter was changed, and the patient was placed on Cipro for a urinary tract infection. Patient states he has been taking Cipro for the past 6 days. He denies fever, nausea, vomiting or hematuria. Chief Complaint: Urinary Time Seen by MD: 16:42 Primary Care Provider: Dr. Chowdhury Allergies: Coded Allergies: NO KNOWN ALLERGIES (Unverified , 05/19/18) Home Meds Active Scripts Ciprofloxacin Hcl (Cipro) 500 Mg Tab, 500 MG PO BID for 7 Days, #14 TAB Prov:HARISH THOMSON 11/02/24 Nitrofurantoin (Nitrofurantoin) 100 Mg Cap, 1 CAP PO BID, #20 CAP Prov:MARIAH GAVIN MD 10/31/24 Tramadol Hcl (Tramadol Hcl) 50 Mg Tab, 50 MG PO BID, #20 TAB Prov:VESNA LARKIN 09/11/22 Triamcinolone Acetonide (Triamcinolone Acetonide) 0.025 % Cre, 1 APPLIC TOP BID, #30 GRAMS Prov:VESNA LARKIN 09/11/22 Information Source: Patient Mode of Arrival: Ambulatory Past Medical History Past Medical History (Other): Prostate disease Surgical History: Cholecystectomy Surgical History (Other): Prostate Family History Family History: No family hx of Cancer, No family hx of DM, No family hx of Heart thais Social History Smoker: Non-Smoker Alcohol: Denies ETOH Use Drugs: Denies Drug Use Lives In: Home All Other Systems: Reviewed and Negative (Comprehensive systems review obtained and negative except for what is stated in the HPI.) Physical Exam General Appearance: No Apparent Distress HEENT: Other (Pupils and face symmetric. Moist mucous membranes.) Neck: Full Range of Motion, Normal Inspection Respiratory: Lungs Clear, No Accessory Muscle Use, No Respiratory Distress, Normal Breath Sounds Cardiovascular: No Edema, No JVD, Regular Rate/Rhythm Breast Exam: Deferred Gastrointestinal: Distended, Suprapubic, Tenderness Genitalia: Other (Indwelling Figueroa catheter with yellow and white debris/sediment within the catheter.) Pelvic: Deferred Rectal: Deferred Extremities: Normal inspection, Normal range of motion, Non-tender, No pedal edema Neurologic: Alert (Oriented x4 ), Normal Affect, Normal Mood, Other (Ambulatory) Cerebellar Function: NOT DONE Reflexes: NOT DONE Skin: Dry, Normal Color, Warm Lymphatic: NOT DONE Was a procedure done? Was a procedure done?: No Differential Diagnosis Kidney stone (Female): N/A Kidney stone (Male): Pyelonephritis, Renal failure, Urinary obstruction, Urinary tract infection X-Ray, Labs, Meds, VS Vital Signs Date Time Temp Pulse Resp B/P (MAP) Pulse Ox O2 Delivery O2 Flow Rate FiO2 11/08/24 20:15 98.8 61 20 150/75 (100) 96 98.8 11/08/24 20:15 Room Air* 0 21 11/08/24 17:11 98.0 67 16 143/78 (99) 95 98.0 Lab Test 11/08/24 20:11 11/08/24 18:53 Range/Units White Blood Count 3.9 L 4.4-10.8 10^3/uL Red Blood Count 4.70 4.5-5.90 10^6/uL Hemoglobin 12.8 L 13.5-17.5 g/dL Hematocrit 39.3 L 41.0-53.0 % Mean Corpuscular Volume 83.5 80.0-100.0 fL Mean Corpuscular Hemoglobin 27.3 L 28.0-32.0 pg Mean Corpuscular Hemoglobin Concent 32.7 32.0-36.0 g/dL Red Cell Distribution Width 15.1 H 11.8-14.3 % Platelet Count 346 140-450 10^3/uL Mean Platelet Volume 7.4 6.9-10.8 fL Neutrophils (%) (Auto) 52.7 37.0-80.0 % Lymphocytes (%) (Auto) 37.9 10.0-50.0 % Monocytes (%) (Auto) 7.7 0.0-12.0 % Eosinophils (%) (Auto) 0.9 0.0-7.0 % Basophils (%) (Auto) 0.8 0.0-2.0 % Neutrophils # (Auto) 2.1 1.6-8.6 10 ^3/uL Lymphocytes # (Auto) 1.5 0.4-5.4 10 ^3/uL Monocytes # (Auto) 0.3 0-1.3 10 ^3/uL Eosinophils # (Auto) 0 0-0.8 10 ^3/uL Basophils # (Auto) 0 0-0.2 10 ^3/uL Nucleated Red Blood Cells 0.1 % Sodium Level 139 136-145 mmol/L Potassium Level 4.3 3.5-5.1 mmol/L Chloride Level 106 98-107 mmol/L Carbon Dioxide Level 24 20-31 mmol/L Anion Gap 9 5-15 Blood Urea Nitrogen 36 H 9-23 mg/dL Creatinine 1.30 0.700-1.30 mg/dL Glomerular Filtration Rate Calc 55 >90 mL/min BUN/Creatinine Ratio 27.7 H 10.0-20.0 Serum Glucose 97 74-106 mg/dL Lactic Acid Level 0.7 0.4-2.0 mmol/L Calcium Level 9.7 8.7-10.4 mg/dL Urine Color Colorless Yellow Urine Clarity Ex.turbid Clear Urine pH 5.5 5.0-9.0 Urine Specific [place] 1.021 1.001-1.035 Urine Protein 1+ H Negative Urine Ketones Negative Negative Urine Blood 3+ H Negative /uL Urine Nitrite Negative Negative Urine Bilirubin Negative Negative Urine Urobilinogen Normal Negative mg/dL Urine Leukocyte Esterase 3+ Negative /uL Urine RBC 277 0 - 3 /hpf Urine WBC Clumps Present None Seen /hpf Urine Microscopic WBC 52 H 0-3 /HPF Urine Squamous Epithelial Cells Few <5 /hpf Urine Uric Acid Crystals Few None Seen /hpf Urine Bacteria Few H None Seen /hpf Urine Mucus Few None Seen Urine Glucose Normal Normal mg/dL Current Medications Medications (Trade) Dose Ordered Sig/Nabila Route Start Time Stop Time Status Last Admin Sodium Chloride 1,000 ml @ 1,000 mls/hr Q1H ONCE IV 11/08/24 20:15 11/08/24 21:14 DC 11/08/24 20:44 Ceftriaxone Sodium 50 ml @ 100 mls/hr ONCE ONCE IV 11/08/24 20:15 11/08/24 20:47 DC 11/08/24 20:44 X-Ray, Labs, Meds, VS Comment 84-year-old male with a history of indwelling Figueroa catheter due to prostate disease brought in by family complaining of suprapubic pain and distention with obstructed Figueroa catheter Vitals remarkable for BP 143/78 Exam remarkable for suprapubic tenderness and distention Rhythm strip independently interpreted by me: Sinus rhythm, rate 67, no ectopy. UA abnormal consistent with UTI CBC remarkable for WBC 3.9, basic metabolic panel remarkable for BUN 36, lactate normal, blood and urine cultures pending Patient treated with the following in the ED: 1 L 0.9 normal saline IV bolus, Rocephin 1 g IV Assisting Figueroa catheter was removed and a 14 Thai Figueroa catheter was inserted with resolution of the suprapubic pain and distention and good urine output. It was found that there was leaking of urine from the urethra around the Figueroa catheter, so the 14 Thai was removed and a 16 Thai was inserted without further leaking. Plan is to admit the patient for IV antibiotics and Urology evaluation, since the patient has failed outpatient treatment with p.o. Cipro. Time of 1ST Reevaluation: 20:05 Reevaluation 1ST: Improved Patient Education/Counseling: Diagnosis, Treatment Family Education/Counseling: No Family Present SEPSIS Sepsis Screen Date sepsis recognized/suspect: Nov 08, 2024 Time Sepsis recognized/suspect: 1709 Recent Procedure: No On Antibiotic Therapy: No Respiratory Rate >20: No Heart Rate >90: No Temp<36 C (96.8 F) or >38.3 C: No SBP <90 or MAP <65 mmHG: No New Acute Mental Status Change: No Is the patient on CPAP, BIPAP,: No Physician Orders Insert/Manage Urinary Catheter QSHIFT (11/08/24 17:16) Blood Culture (11/08/24 20:06) Urine Bacterial Culture (11/08/24 20:06) Vital Signs Date Time Temp Pulse Resp B/P (MAP) Pulse Ox O2 Delivery O2 Flow Rate FiO2 11/08/24 20:15 98.8 61 20 150/75 (100) 96 98.8 11/08/24 20:15 Room Air* 0 21 11/08/24 17:11 98.0 67 16 143/78 (99) 95 98.0 Laboratory Tests Test 11/08/24 20:11 Lactic Acid Level 0.7 mmol/L (0.4-2.0) White Blood Count 3.9 10^3/uL (4.4-10.8) L Medications Medications Dose Ordered Sig/Nabila Route Start Time Stop Time Status Last Admin Dose Admin Ceftriaxone Sodium 50 ml @ 100 mls/hr ONCE ONCE IV 11/08/24 20:15 11/08/24 20:47 DC 11/08/24 20:44 Sodium Chloride 1,000 ml @ 1,000 mls/hr Q1H ONCE IV 11/08/24 20:15 11/08/24 21:14 DC 11/08/24 20:44 Departure 1 Departure Time of Disposition: 20:05 Impression: Primary Impression: UTI (urinary tract infection) Additional Impressions: Obstructed Figueroa catheter Dehydration Disposition: ADMITTED INPATIENT Admit to: Med Surg Condition: Guarded Critical Care Note Critical Care Time?: No Stability Stability form required: No Heart Score Heart Score: Heart Score Response (Comments) Value History N/A 0 EKG N/A 0 Age N/A 0 Risk Factors N/A 0 Troponin N/A 0 Total 0 CLARE [facility] MD Nov 08, 2024 20:07
[2024-11-08 20:29] LABS: Hematocrit 39.3 % (41.0-53.0); Hemoglobin 12.8 g/dL (13.5-17.5); Mean Corpuscular Hemoglobin 27.3 pg (28.0-32.0); Mean Corpuscular Volume 83.5 fL (80.0-100.0); Nucleated Red Blood Cells % 0.1 %
[2024-11-08 20:36] LABS: Chloride 106 mmol/L (98-107); Potassium 4.3 mmol/L (3.5-5.1); Sodium 139 mmol/L (136-145)
[2024-11-08 20:37] LABS: Anion Gap 9 (5-15); Calcium 9.7 mg/dL (8.7-10.4); Carbon Dioxide 24 mmol/L (20-31)
[2024-11-08 20:42] LABS: BUN/Creatinine Ratio 27.7 (10.0-20.0); Glucose 97 mg/dL (74-106)
[2024-11-08] MEDS: SODIUM CHLORIDE 0.9% 1,000 ML IV ONE (20:44)
[2024-11-08] MEDS: cefTRIAXone 1GM/50ML D5W 50 ML IV ONE (20:44)
[2024-11-08 21:34] LABS: Blood Urea Nitrogen 36 mg/dL (9-23)
--- NOTE | 2024-11-08 21:52 | DVHHP2 ---
History of Present Illness History of Present Illness This is a 84 years old male with past medical history benign prostate hyperplasia, chronic indwelling Cam catheter, prostate surgery 4 months ago come to emergency department with complain of suprapubic pain which is localized,5-6/10, not radiating, no aggrav or relieving factor. Patient was seen on 11/02/2024 for the same complain, Cam catheter was changed in [facility] and the patient was placed on Cipro for a urinary tract infection. Cam catheter placed 4 months ago after prostate surgery in [facility]. Patient denies any fever, nausea, vomiting, headache, chest pain SOB or any acute distress. Patient recent admission on 10/30/2023, blood and urine culture shows growth of E coli. Past Medical History (Other): BPH Surgical History: Cholecystectomy, PROSTATECTOMY Family History: No family hx of Cancer Social History Smoker: Non-Smoker Alcohol: Denies ETOH Use Drugs: Denies Drug Use Lives In: Home ALLERGY: NONE . Review of Systems Constitutional: Yes: Fever; No: Chills, Sweats, Weakness, Malaise, Other Eyes: No: Pain, Vision change, Conjunctivae inflammation, Eyelid inflammation, Other, Redness ENT: No: Ear pain, Ear discharge, Nose pain, Nose discharge, Nose congestion, Mouth pain, Mouth swelling, Throat pain, Throat swelling, Other Respiratory: No: Cough, Dry, Shortness of breath, SOB with excertion, Wheezing, Hemoptysis, Pleuritic Pain, Sputum, Wheezing, Other Cardiovascular: No: Chest Pain, Palpitations, Orthopnea, Paroxysmal Noc. Dyspnea, Edema, Lt Headedness, Other Gastrointestinal: Other (Suprapubic pain); No: Nausea, Vomiting, Abdominal Pain, Diarrhea, Constipation, Melena, Hematochezia Genitourinary: Other (Urinary catheter in place) Musculoskeletal: No: other, neck pain, shoulder pain, arm pain, back pain, hand pain, leg pain, foot pain Skin: No: Rash, Lesions, Jaundice, Bruising, Other Allergies: Coded Allergies: NO KNOWN ALLERGIES (Unverified , 05/19/18) Exam Vital Signs Vital Signs Date Time Temp Pulse Resp B/P (MAP) Pulse Ox O2 Delivery O2 Flow Rate FiO2 11/08/24 20:15 98.8 61 20 150/75 (100) 96 98.8 11/08/24 20:15 Room Air* 0 21 General Appearance: Alert, Oriented X3, Cooperative HEENT: Atraumatic, PERRLA, EOMI Respiratory: Clear to auscultation, Normal air movement Cardiovascular: Regular rate, Normal S1, Normal S2 Abdominal: Normal bowel sounds, Soft, No tenderness, No hepatospenomegaly, Other (Urinary catheter in place, tenderness on deep palpation suprapubic area) Extremities: No clubbing, No cyanosis, No edema, Normal pulses Skin: No rashes Neuro: Normal speech, Normal tone, Sensation intact Labs/Xrays Labs Test 11/08/24 20:11 11/08/24 18:53 Range/Units White Blood Count 3.9 L 4.4-10.8 10^3/uL Red Blood Count 4.70 4.5-5.90 10^6/uL Hemoglobin 12.8 L 13.5-17.5 g/dL Hematocrit 39.3 L 41.0-53.0 % Mean Corpuscular Volume 83.5 80.0-100.0 fL Mean Corpuscular Hemoglobin 27.3 L 28.0-32.0 pg Mean Corpuscular Hemoglobin Concent 32.7 32.0-36.0 g/dL Red Cell Distribution Width 15.1 H 11.8-14.3 % Platelet Count 346 140-450 10^3/uL Mean Platelet Volume 7.4 6.9-10.8 fL Neutrophils (%) (Auto) 52.7 37.0-80.0 % Lymphocytes (%) (Auto) 37.9 10.0-50.0 % Monocytes (%) (Auto) 7.7 0.0-12.0 % Eosinophils (%) (Auto) 0.9 0.0-7.0 % Basophils (%) (Auto) 0.8 0.0-2.0 % Neutrophils # (Auto) 2.1 1.6-8.6 10 ^3/uL Lymphocytes # (Auto) 1.5 0.4-5.4 10 ^3/uL Monocytes # (Auto) 0.3 0-1.3 10 ^3/uL Eosinophils # (Auto) 0 0-0.8 10 ^3/uL Basophils # (Auto) 0 0-0.2 10 ^3/uL Nucleated Red Blood Cells 0.1 % Sodium Level 139 136-145 mmol/L Potassium Level 4.3 3.5-5.1 mmol/L Chloride Level 106 98-107 mmol/L Carbon Dioxide Level 24 20-31 mmol/L Anion Gap 9 5-15 Blood Urea Nitrogen 36 H 9-23 mg/dL Creatinine 1.30 0.700-1.30 mg/dL Glomerular Filtration Rate Calc 55 >90 mL/min BUN/Creatinine Ratio 27.7 H 10.0-20.0 Serum Glucose 97 74-106 mg/dL Lactic Acid Level 0.7 0.4-2.0 mmol/L Calcium Level 9.7 8.7-10.4 mg/dL Urine Color Colorless Yellow Urine Clarity Ex.turbid Clear Urine pH 5.5 5.0-9.0 Urine Specific [place] 1.021 1.001-1.035 Urine Protein 1+ H Negative Urine Ketones Negative Negative Urine Blood 3+ H Negative /uL Urine Nitrite Negative Negative Urine Bilirubin Negative Negative Urine Urobilinogen Normal Negative mg/dL Urine Leukocyte Esterase 3+ Negative /uL Urine RBC 277 0 - 3 /hpf Urine WBC Clumps Present None Seen /hpf Urine Microscopic WBC 52 H 0-3 /HPF Urine Squamous Epithelial Cells Few <5 /hpf Urine Uric Acid Crystals Few None Seen /hpf Urine Bacteria Few H None Seen /hpf Urine Mucus Few None Seen Urine Glucose Normal Normal mg/dL SEPSIS Sepsis Screen Date sepsis recognized/suspect: Nov 08, 2024 Time Sepsis recognized/suspect: 1709 Recent Procedure: No On Antibiotic Therapy: No Respiratory Rate >20: No Heart Rate >90: No Temp<36 C (96.8 F) or >38.3 C: No SBP <90 or MAP <65 mmHG: No New Acute Mental Status Change: No Is the patient on CPAP, BIPAP,: No Physician Orders Insert/Manage Urinary Catheter QSHIFT (11/08/24 17:16) Blood Culture (11/08/24 20:06) Urine Bacterial Culture (11/08/24 20:06) Admit (11/08/24 21:50) Nitroglycerin Sublingual (Ntrostat Subli (11/08/24 22:00) Morphine Sulfate Injection (11/08/24 22:00) Vital Signs Date Time Temp Pulse Resp B/P (MAP) Pulse Ox O2 Delivery O2 Flow Rate FiO2 11/08/24 20:15 98.8 61 20 150/75 (100) 96 98.8 11/08/24 20:15 Room Air* 0 21 11/08/24 17:11 98.0 67 16 143/78 (99) 95 98.0 Laboratory Tests Test 11/08/24 20:11 Lactic Acid Level 0.7 mmol/L (0.4-2.0) White Blood Count 3.9 10^3/uL (4.4-10.8) L Medications Medications Dose Ordered Sig/Nabila Route Start Time Stop Time Status Last Admin Dose Admin Ceftriaxone Sodium 50 ml @ 100 mls/hr ONCE ONCE IV 11/08/24 20:15 11/08/24 20:47 DC 11/08/24 20:44 100 MLS/HR Sodium Chloride 1,000 ml @ 1,000 mls/hr Q1H ONCE IV 11/08/24 20:15 11/08/24 21:14 DC 11/08/24 20:44 1,000 MLS/HR Assessment/Plan Assessment/Plan # Urinary tract infection due to indwelling Cam catheter -Patient came with suprapubic pain # CAM catheter was changed [facility] and prescribed Cipro for UTI on 11/02/2024 -Received ceftriaxone and NSS in ED -Lactic acid 0.7 -UA: Turbid, leukocyte 3+, WBC plenty, bacteria few -Leukocytosis, WBC 12.8 -Ceftriaxone1 g IV daily -Encourage oral fluid intake # Benign prostatic hyperplasia - Surgery 4 months ago [facility] -Tamsulosin 0.4 mg p.o. 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 Mild bilateral renal atrophy and cortical thinning. -S. creatinine 1.30 -Avoid nephrotoxic drugs Diet: Regular GI prophylaxis: Famotidine 20 mg p.o. b.i.d. DVT prophylaxis: Lovenox 30 mg sc daily Goals of care discussions, more than 29 minutes spent. Full code status. Case discussed with Dr. Hooks Plan discussed with: Patient, Other (Nurse) My Orders Orders - JOSELITO DIAZ RESIDENT Procedure Category Date Status Time Admit ADMIT 11/08/24 Verified 21:50 Nitroglycerin PHA 11/08/24 Verified Sublingual (Ntrostat 22:00 Morphine Sulfate PHA 11/08/24 Verified Injection 22:00 Date of Service: Nov 08, 2024 Billing Provider: CATALINA HOOKS MD Common Visit Codes: [id number] INP/OBS CARE (HIGH) Secondary Visit Codes: 60231-[id number] CARE PLAN 30 MINUTES JOSELITO DIAZ RESIDENT Nov 08, 2024 21:52
[2024-11-08] MEDS ORDERED: NITROGLYCERIN 0.4 MG SL TAB SL PRN (22:00)
[2024-11-08] MEDS ORDERED: MORPHINE SULFATE INJ 2 MG/ml SYRG IV PRN (22:00)
[2024-11-09] VITALS (8 sets, daily range): BP systolic 105–142; BP diastolic 64–75; PULSE 57–67; RESP 16–18; TEMP 97.5–98.8; O2SAT 95–99
[2024-11-09] MEDS: FAMOTIDINE 20 MG TAB PO SCH (10:03)
[2024-11-09] MEDS: ENOXAPARIN SOD 40 MG/0.4 ML SYRINGE SC SCH (10:03)
--- NOTE | 2024-11-09 11:42 | DVHPNRES ---
Progress Note Date Seen: Nov 09, 2024 Resident Creating Document: MUNA MUNOZ RESIDENT Medical Necessity Reason Pt with a Central, PICC or Fol: No The following are medically ne: Figueroa Catheter Subjective Review of Systems Qasim Sevilla is a 84 years old male with past medical history benign prostate hyperplasia, prostate surgery 4 months ago come to emergency department with complain of suprapubic pain. He has a chronic indwelling Figueroa catheter, placed in place after his prostate sx ([facility]). He complains of pain and obstruction of urethra since Tuesday. In the ED, pain is 6/10, not radiating, no aggravating or relieving factor. Patient was seen on 11/02/2024 for the same complain, Figueroa catheter was changed in [facility] and the patient was placed on Cipro for a urinary tract infection. Figueroa catheter placed 4 months ago after prostate surgery in [facility]. Patient also complains of fever. He reports having foggy memories and has difficulty recalling all the events. History corroborated by . No associated nausea, vomiting, headache, chest pain SOB or any acute distress. Patient recent admission on 10/30/2023, blood and urine culture shows growth of E coli. He takes tamsulosin and omeprazole at home. Past Medical History (Other): BPH Surgical History: Cholecystectomy, prostatectomy Family History: No family hx of Cancer Social History: Non-Smoker. Denies ETOH Use. Denies Drug Use Lives In: Home ROS: Constitutional: Yes: Fever; No: Chills, Sweats, Weakness, Malaise Eyes: No: Pain, Vision change, Conjunctivae inflammation, Eyelid inflammation ENT: No: Ear pain, Ear discharge, Nose pain, Nose discharge Respiratory: No: Cough, Dry, Shortness of breath, SOB with excertion, Wheezing, Hemoptysis, Pleuritic Pain, Sputum, Wheezing Cardiovascular: No: Chest Pain, Palpitations, Orthopnea, Paroxysmal Noc. Dyspnea, Edema, Lt Headedness Gastrointestinal: Suprapubic pain Genitourinary: Urinary catheter in place Skin: No: Rash, Lesions, Jaundice, Bruising Objective vital signs Vital Sign Date Time Temp Pulse Resp B/P (MAP) Pulse Ox O2 Delivery O2 Flow Rate FiO2 11/09/24 09:00 98.0 66 16 142/73 (96) 95 98.0 7/11/25 00:36 Room Air* 0 21 Total Intake and Output 11/08/24 11/08/24 11/09/24 15:00 23:00 07:00 Intake Total 1050 ml 0 ml Output Total 850 ml Balance 1050 ml -850 ml medications Current Medications Medications Dose Ordered Sig/Nabila Route Start Time Stop Time Status Last Admin Dose Admin Nitroglycerin 0.4 mg Q5MINP PRN SL 11/08/24 22:00 Morphine Sulfate 2 mg Q30M PRN IV 11/08/24 22:00 Famotidine 20 mg DAILY PO 11/09/24 10:00 11/09/24 10:03 20 MG Enoxaparin Sodium 40 mg DAILY SC 11/09/24 10:00 11/09/24 10:03 40 MG Tamsulosin HCl 0.4 mg QPM PO 11/09/24 18:00 Ceftriaxone Sodium 50 ml @ 100 mls/hr Q24H IV 11/09/24 20:00 Sodium Chloride 1,000 ml @ 75 mls/hr [id number] IV 11/09/24 11:15 Examination General Appearance: Alert, Oriented X3, Cooperative HEENT: Atraumatic, PERRLA, EOMI Respiratory: Clear to auscultation, Normal air movement Cardiovascular: Regular rate, Normal S1, Normal S2 Abdominal: Tenderness on deep palpation suprapubic area. Normal bowel sounds, Soft, No tenderness, No hepatospenomegaly Urinary catheter in place, normal skin around the penile opening, no discharge Extremities: No clubbing, No cyanosis, No edema, Normal pulses Skin: No rashes Neuro: Normal speech, Normal tone, Sensation intact laboratory and microbiology Laboratory Tests 11/08/24 20:11 Test 11/08/24 20:11 Range/Units Serum Glucose 97 74-106 mg/dL Microbiology Date/Time Source Procedure Growth Status 11/08/24 18:53 Urine - Figueroa Port Urine Culture - Preliminary Resulted Problem List/Assessment/Plan Problem List/Assessment/Plan # Urinary tract infection, likely due to indwelling Figueroa catheter #Lower urinary tract obstruction, likely due to urethral stricture -Catheter placed 4 months ago after prostate surgery at [facility] -NS given in ED -Lactic acid 0.7 -UA: Turbid, leukocyte 3+, WBC plenty, bacteria few -Leukocytosis, WBC 12.8 -Encourage oral fluid intake -U. culture ordered -Switch ceftriaxone to IV cefepime for broad coverage. #Benign prostatic hyperplasia #Status post prostatectomy -Surgery 4 months ago [facility] -Tamsulosin 0.4 mg p.o. daily # Acute on chronic kidney injury, VMN -CT abd and pelvis wo contrast(10/30/2023) : No acute abdominal or pelvic findings.Hepatomegaly. Mild bilateral renal atrophy and cortical thinning. -S. creatinine 1.30 -Avoid nephrotoxic drugs -BUN/creatinine ratio= 27 GI prophylaxis: Famotidine 20 mg p.o. b.i.d. DVT prophylaxis: Lovenox 30 mg sc daily Goals of care discussed with patient at bedside for more than 35 minutes. Full code status. Case discussed with Dr. Gillespie Plan discussed with: Patient, Spouse (Both patient and spouse) Date of Service: Nov 09, 2024 Billing Provider: SUN ARAMBULA MD Common Visit Codes: [id number] INP/OBS CARE(HIGH) MUNA MUNOZ RESIDENT Nov 09, 2024 11:42 SUN ARAMBULA MD Nov 12, 2024 00:01
[2024-11-09] MEDS: SODIUM CHLORIDE 0.9% 1,000 ML IV SCH (12:16)
[2024-11-09] MEDS: TAMSULOSIN HYDROCHLORIDE 0.4 MG CAP PO SCH (18:08)
[2024-11-09] MEDS ORDERED: cefTRIAXone 1GM/50ML D5W 50 ML IV SCH (20:00)
[2024-11-09] MEDS: CEFEPIME 1GM/ 50ML 50 ML IV SCH (22:23)
[2024-11-10] VITALS (9 sets, daily range): BP systolic 121–166; BP diastolic 61–81; PULSE 55–69; RESP 17–20; TEMP 97.6–98.4; O2SAT 94–99
[2024-11-10 08:09] LABS: Hematocrit 37.9 % (41.0-53.0); Hemoglobin 12.6 g/dL (13.5-17.5); Mean Corpuscular Hemoglobin 27.5 pg (28.0-32.0); Mean Corpuscular Volume 82.7 fL (80.0-100.0); Nucleated Red Blood Cells % 0.0 %
[2024-11-10 08:20] LABS: Alanine Aminotransferase 24 U/L (7-40); Albumin 3.9 g/dL (3.2-4.8); Alkaline Phosphatase 80 U/L (46-116); Anion Gap 11 (5-15); BUN/Creatinine Ratio 22.5 (10.0-20.0); Bilirubin, Total 0.5 mg/dL (0.2-1.0); Calcium 9.5 mg/dL (8.7-10.4); Carbon Dioxide 23 mmol/L (20-31); Chloride 106 mmol/L (98-107); Glucose 103 mg/dL (74-106); Potassium 3.9 mmol/L (3.5-5.1); Sodium 140 mmol/L (136-145); Total Protein 6.6 g/dL (5.7-8.2)
[2024-11-10 08:21] LABS: Blood Urea Nitrogen 23 mg/dL (9-23)
--- NOTE | 2024-11-10 17:29 | DVHPNRES ---
Progress Note Date Seen: Nov 10, 2024 Resident Creating Document: KAJAL DUNN RESIDENT Has the PT tested + for MRSA If YES, has PT been informed?: No Medical Necessity Reason Pt with a Central, PICC or Fol: No The following are medically ne: Figueroa Catheter Subjective Review of Systems Qasim Sevilla is a 84 years old male with past medical history benign prostate hyperplasia, prostate surgery 4 months ago come to emergency department with complain of suprapubic pain. He has a chronic indwelling Figueroa catheter, placed in place after his prostate sx ([facility]). He complains of pain and obstruction of urethra since Tuesday. In the ED, pain is 6/10, not radiating, no aggravating or relieving factor. Patient was seen on 11/02/2024 for the same complain, Figueroa catheter was changed in [facility] and the patient was placed on Cipro for a urinary tract infection. Figueroa catheter placed 4 months ago after prostate surgery in [facility]. Patient also complains of fever. He reports having foggy memories and has difficulty recalling all the events. History corroborated by . No associated nausea, vomiting, headache, chest pain SOB or any acute distress. Patient recent admission on 10/30/2023, blood and urine culture shows growth of E coli. He takes tamsulosin and omeprazole at home. Past Medical History (Other): BPH Surgical History: Cholecystectomy, prostatectomy Family History: No family hx of Cancer Social History: Non-Smoker. Denies ETOH Use. Denies Drug Use Lives In: Home 11/10/24: Patient was evaluated at bedside today. He reports feeling better, no fever, chills, nausea or vomit during the night. Patient complains of pain pressure like over the penis. Vital signs were reviewed, vital signs and labs are within normal limits. We are working on patient's discharge plan, due to UTI recurrence the patient will be sending home with homehealth for IV antibiotics and regular Figueroa catheter exchange, social service is onboard, we will follow up with this patient closely. ROS: Constitutional: Yes: Fever; No: Chills, Sweats, Weakness, Malaise Eyes: No: Pain, Vision change, Conjunctivae inflammation, Eyelid inflammation ENT: No: Ear pain, Ear discharge, Nose pain, Nose discharge Respiratory: No: Cough, Dry, Shortness of breath, SOB with excertion, Wheezing, Hemoptysis, Pleuritic Pain, Sputum, Wheezing Cardiovascular: No: Chest Pain, Palpitations, Orthopnea, Paroxysmal Noc. Dyspnea, Edema, Lt Headedness Gastrointestinal: Suprapubic pain Genitourinary: Urinary catheter in place Skin: No: Rash, Lesions, Jaundice, Bruising Objective vital signs Vital Sign Date Time Temp Pulse Resp B/P (MAP) Pulse Ox O2 Delivery O2 Flow Rate FiO2 11/10/24 17:09 97.7 66 20 130/61 (84) 95 97.7 11/10/24 08:00 Room Air* 0 21 Total Intake and Output 11/09/24 11/09/24 11/10/24 15:00 23:00 07:00 Intake Total 1200 ml 700 ml 615.2 ml Output Total 1700 ml 425 ml Balance 1200 ml -1000 ml 190.2 ml medications Current Medications Medications Dose Ordered Sig/Nabila Route Start Time Stop Time Status Last Admin Dose Admin Nitroglycerin 0.4 mg Q5MINP PRN SL 11/08/24 22:00 Morphine Sulfate 2 mg Q30M PRN IV 11/08/24 22:00 Famotidine 20 mg DAILY PO 11/09/24 10:00 11/10/24 10:29 20 MG Enoxaparin Sodium 40 mg DAILY SC 11/09/24 10:00 11/10/24 10:29 40 MG Tamsulosin HCl 0.4 mg QPM PO 11/09/24 18:00 11/09/24 18:08 0.4 MG Sodium Chloride 1,000 ml @ 75 mls/hr [id number] IV 11/09/24 11:15 11/10/24 06:10 75 MLS/HR Cefepime HCl 50 ml @ 12.5 mls/hr Q12HR IV 11/09/24 22:00 11/10/24 10:29 12.5 MLS/HR Examination General Appearance: Alert, Oriented X3, Cooperative HEENT: Atraumatic, PERRLA, EOMI Respiratory: Clear to auscultation, Normal air movement Cardiovascular: Regular rate, Normal S1, Normal S2 Abdominal: Tenderness on deep palpation suprapubic area. Normal bowel sounds, Soft, No tenderness, No hepatospenomegaly Urinary catheter in place, draining clear urine, normal skin around the penile opening, no discharge Extremities: No clubbing, No cyanosis, No edema, Normal pulses Skin: No rashes Neuro: Cranial nerves intact, Normal speech, Normal tone, Sensation intact laboratory and microbiology Laboratory Tests 11/10/24 07:23 Test 11/10/24 07:23 Range/Units Serum Glucose 103 74-106 mg/dL Microbiology Date/Time Source Procedure Growth Status 11/09/24 06:48 Nose MRSA Screen - Final Complete 11/08/24 20:11 Blood Blood Culture - Preliminary NO GROWTH AFTER 24 HOURS OF INCUBATION. Resulted 11/08/24 18:53 Urine - Figueroa Port Urine Culture - Preliminary Resulted Problem List/Assessment/Plan Problem List/Assessment/Plan # Urinary tract infection, likely due to indwelling Figueroa catheter #Lower urinary tract obstruction, likely due to urethral stricture -Catheter placed 4 months ago after prostate surgery at [facility] -NS given in ED -Lactic acid 0.7 -UA: Turbid, leukocyte 3+, WBC plenty, bacteria few -Leukocytosis, WBC 12.8 -Encourage oral fluid intake -U. culture: no growth -Switch ceftriaxone to IV cefepime for broad coverage. #Benign prostatic hyperplasia #Status post prostatectomy -Surgery 4 months ago [facility] -Tamsulosin 0.4 mg p.o. daily # Acute on chronic kidney injury, VMN -CT abd and pelvis wo contrast(10/30/2023) : No acute abdominal or pelvic findings.Hepatomegaly. Mild bilateral renal atrophy and cortical thinning. -S. creatinine 1.02 -Avoid nephrotoxic drugs -BUN/creatinine ratio= 22.5 GI prophylaxis: Famotidine 20 mg p.o. b.i.d. DVT prophylaxis: Lovenox 30 mg sc daily Goals of care discussed with patient at bedside for more than 35 minutes. Full code status. Case discussed with Dr. Gillespie Plan discussed with: Patient, Spouse (Both patient and spouse) Plan discussed with: Patient, Spouse Date of Service: Nov 10, 2024 Billing Provider: SUN ARAMBULA MD Common Visit Codes: [id number] INP/OBS CARE(HIGH) KAJAL DUNN RESIDENT Nov 10, 2024 17:29 SUN ARAMBULA MD Nov 12, 2024 00:35
[2024-11-11] VITALS (8 sets, daily range): BP systolic 122–144; BP diastolic 63–81; PULSE 59–65; RESP 17–20; TEMP 97.5–98.6; O2SAT 93–99
[2024-11-11 08:50] LABS: Hematocrit 37.5 % (41.0-53.0); Hemoglobin 12.4 g/dL (13.5-17.5); Mean Corpuscular Hemoglobin 27.4 pg (28.0-32.0); Mean Corpuscular Volume 82.9 fL (80.0-100.0); Nucleated Red Blood Cells % 0.1 %
[2024-11-11 09:08] LABS: Alanine Aminotransferase 21 U/L (7-40); Albumin 3.7 g/dL (3.2-4.8); Alkaline Phosphatase 76 U/L (46-116); Anion Gap 8 (5-15); BUN/Creatinine Ratio 21.2 (10.0-20.0); Bilirubin, Total 0.4 mg/dL (0.2-1.0); Calcium 9.4 mg/dL (8.7-10.4); Carbon Dioxide 25 mmol/L (20-31); Chloride 106 mmol/L (98-107); Potassium 3.9 mmol/L (3.5-5.1); Sodium 139 mmol/L (136-145); Total Protein 6.3 g/dL (5.7-8.2)
[2024-11-11 09:13] LABS: Blood Urea Nitrogen 24 mg/dL (9-23); Glucose 131 mg/dL (74-106)
--- NOTE | 2024-11-11 17:01 | DVHPNRES ---
Progress Note Date Seen: Nov 11, 2024 Resident Creating Document: MUNA MUNOZ RESIDENT Has the PT tested + for MRSA If YES, has PT been informed?: No Medical Necessity Reason Pt with a Central, PICC or Fol: No The following are medically ne: Figueroa Catheter Subjective Review of Systems Qasim Sevilla is a 84 years old male with past medical history benign prostate hyperplasia, prostate surgery 4 months ago come to emergency department with complain of suprapubic pain. He has a chronic indwelling Figueroa catheter, placed in place after his prostate sx ([facility]). He complains of pain and obstruction of urethra since Tuesday. In the ED, pain is 6/10, not radiating, no aggravating or relieving factor. Patient was seen on 11/02/2024 for the same complain, Figueroa catheter was changed in [facility] and the patient was placed on Cipro for a urinary tract infection. Figueroa catheter placed 4 months ago after prostate surgery in [facility]. Patient also complains of fever. He reports having foggy memories and has difficulty recalling all the events. History corroborated by . No associated nausea, vomiting, headache, chest pain SOB or any acute distress. Patient recent admission on 10/30/2023, blood and urine culture shows growth of E coli. He takes tamsulosin and omeprazole at home. Past Medical History (Other): BPH Surgical History: Cholecystectomy, prostatectomy Family History: No family hx of Cancer Social History: Non-Smoker. Denies ETOH Use. Denies Drug Use Lives In: Home 11/10/24: He reports feeling better, no fever, chills, nausea or vomit during the night. Patient complains of pain pressure like over the penis. Vital signs were reviewed, vital signs and labs are within normal limits. We are working on patient's discharge plan, due to UTI recurrence the patient will be sending home with home health for IV antibiotics and regular Figueroa catheter exchange, social service is onboard, we will follow up with this patient closely. 11/11/24: Patient was evaluated at bedside today. No new complaints today, anxious about his ongoing infection. Urine culture and MRSA negative. We will do social service follow-up for home health midline for IV ceftriaxone and Figueroa catheter. His BUN creatinine ratio is improving, today 21. His vitals are stable. ROS: Constitutional: Yes: Fever; No: Chills, Sweats, Weakness, Malaise Eyes: No: Pain, Vision change, Conjunctivae inflammation, Eyelid inflammation ENT: No: Ear pain, Ear discharge, Nose pain, Nose discharge Respiratory: No: Cough, Dry, Shortness of breath, SOB with excertion, Wheezing, Hemoptysis, Pleuritic Pain, Sputum, Wheezing Cardiovascular: No: Chest Pain, Palpitations, Orthopnea, Paroxysmal Noc. Dyspnea, Edema, Lt Headedness Gastrointestinal: Suprapubic pain Genitourinary: Urinary catheter in place Skin: No: Rash, Lesions, Jaundice, Bruising Objective vital signs Vital Sign Date Time Temp Pulse Resp B/P (MAP) Pulse Ox O2 Delivery O2 Flow Rate FiO2 11/11/24 12:33 98.1 63 20 138/63 (88) 93 98.1 11/11/24 07:30 Room Air* 0 21 Total Intake and Output 11/10/24 11/10/24 11/11/24 15:00 23:00 07:00 Intake Total 650 ml 210 ml 275 ml Output Total 1750 ml 1400 ml Balance 650 ml -1540 ml -1125 ml medications Current Medications Medications Dose Ordered Sig/Nabila Route Start Time Stop Time Status Last Admin Dose Admin Nitroglycerin 0.4 mg Q5MINP PRN SL 11/08/24 22:00 Morphine Sulfate 2 mg Q30M PRN IV 11/08/24 22:00 Famotidine 20 mg DAILY PO 11/09/24 10:00 11/11/24 10:44 20 MG Enoxaparin Sodium 40 mg DAILY SC 11/09/24 10:00 11/11/24 10:44 40 MG Tamsulosin HCl 0.4 mg QPM PO 11/09/24 18:00 11/10/24 18:14 0.4 MG Sodium Chloride 1,000 ml @ 75 mls/hr [id number] IV 11/09/24 11:15 11/11/24 03:15 75 MLS/HR Cefepime HCl 50 ml @ 12.5 mls/hr Q12HR IV 11/09/24 22:00 11/11/24 10:44 12.5 MLS/HR Examination General Appearance: Alert, Oriented X3, Cooperative HEENT: Atraumatic, PERRLA, EOMI Respiratory: Clear to auscultation, Normal air movement Cardiovascular: Regular rate, Normal S1, Normal S2 Abdominal: Tenderness on deep palpation suprapubic area. Normal bowel sounds, Soft, No tenderness, No hepatospenomegaly Urinary catheter in place, draining clear urine, normal skin around the penile opening, no abnormal discharge Extremities: No clubbing, No cyanosis, No edema, Normal pulses Skin: No rashes Neuro: Cranial nerves intact, Normal speech, Normal tone, Sensation intact laboratory and microbiology Laboratory Tests 11/11/24 08:19 Test 11/11/24 08:19 Range/Units Serum Glucose 131 H 74-106 mg/dL Microbiology Date/Time Source Procedure Growth Status 11/09/24 06:48 Nose MRSA Screen - Final Complete 11/08/24 20:11 Blood Blood Culture - Preliminary NO GROWTH AFTER 48 HOURS OF INCUBATION. Resulted 11/08/24 18:53 Urine - Figueroa Port Urine Culture - Final Complete Problem List/Assessment/Plan Problem List/Assessment/Plan # Urinary tract infection, likely due to indwelling Figueroa catheter #Lower urinary tract obstruction, likely due to urethral stricture -Catheter was initially placed 4 months ago after prostate surgery at [facility], replaced every 3-4 weeks. -NS given in ED -Lactic acid 0.7 -UA: Turbid, leukocyte 3+, WBC plenty, bacteria few -Leukocytosis, WBC 12.8 -Encourage oral fluid intake -U. culture negative -Continue IV cefepime for broad coverage. #Benign prostatic hyperplasia #Status post prostatectomy -Surgery 4 months ago [facility] -Tamsulosin 0.4 mg p.o. daily # Acute on chronic kidney injury, VMN -CT abd and pelvis wo contrast(10/30/2023) : No acute abdominal or pelvic findings.Hepatomegaly. Mild bilateral renal atrophy and cortical thinning. -S. creatinine 1.30 -Avoid nephrotoxic drugs -BUN/creatinine ratio= 27 GI prophylaxis: Famotidine 20 mg p.o. b.i.d. DVT prophylaxis: Lovenox 30 mg sc daily Goals of care discussed with patient at bedside for more than 25 minutes. Full code status. Case discussed with Dr. Gillespie Plan discussed with: Patient Date of Service: Nov 11, 2024 Billing Provider: SUN ARAMBULA MD Common Visit Codes: [id number] INP/OBS CARE(HIGH) GEHLAWAT,MUNA RESIDENT Nov 11, 2024 17:01 SUN ARAMBULA MD Nov 12, 2024 01:27
[2024-11-12 05:00] VITALS: BP 132/72; PULSE 97; RESP 18; TEMP 97.6; O2SAT 64
[2024-11-12 08:12] VITALS: O2SAT 99
[2024-11-12 09:14] VITALS: BP 131/86; PULSE 63; RESP 16; TEMP 97.7; O2SAT 95
[2024-11-12 11:43] LABS: Hematocrit 39.6 % (41.0-53.0); Hemoglobin 13.1 g/dL (13.5-17.5); Mean Corpuscular Hemoglobin 27.8 pg (28.0-32.0); Mean Corpuscular Volume 84.2 fL (80.0-100.0); Nucleated Red Blood Cells % 0.1 %
[2024-11-12 11:55] LABS: Alanine Aminotransferase 27 U/L (7-40); Albumin 4.3 g/dL (3.2-4.8); Alkaline Phosphatase 94 U/L (46-116); Anion Gap 10 (5-15); BUN/Creatinine Ratio 17.4 (10.0-20.0); Blood Urea Nitrogen 20 mg/dL (9-23); Calcium 9.7 mg/dL (8.7-10.4); Carbon Dioxide 23 mmol/L (20-31); Chloride 105 mmol/L (98-107); Potassium 4.0 mmol/L (3.5-5.1); Sodium 138 mmol/L (136-145); Total Protein 7.3 g/dL (5.7-8.2)
[2024-11-12 11:57] LABS: Bilirubin, Total 0.3 mg/dL (0.2-1.0)
[2024-11-12 11:59] LABS: Glucose 140 mg/dL (74-106)
[2024-11-12 12:58] VITALS: BP 124/66; PULSE 71; RESP 18; TEMP 97.7; O2SAT 95
--- NOTE | 2024-11-12 15:10 | DVHPNRES ---
Progress Note Date Seen: Nov 12, 2024 Resident Creating Document: MUNA MUNOZ RESIDENT Has the PT tested + for MRSA If YES, has PT been informed?: No Medical Necessity Reason Pt with a Central, PICC or Fol: No The following are medically ne: Kearns Catheter Subjective Review of Systems Qasim Sevilla is a 84 years old male with past medical history benign prostate hyperplasia, prostate surgery 4 months ago come to emergency department with complain of suprapubic pain. He has a chronic indwelling Kearns catheter, placed in place after his prostate sx ([facility]). He complains of pain and obstruction of urethra since Tuesday. In the ED, pain is 6/10, not radiating, no aggravating or relieving factor. Patient was seen on 11/02/2024 for the same complain, Kearns catheter was changed in [facility] and the patient was placed on Cipro for a urinary tract infection. Kearns catheter placed 4 months ago after prostate surgery in [facility]. Patient also complains of fever. He reports having foggy memories and has difficulty recalling all the events. History corroborated by . No associated nausea, vomiting, headache, chest pain SOB or any acute distress. Patient recent admission on 10/30/2023, blood and urine culture shows growth of E coli. He takes tamsulosin and omeprazole at home. Past Medical History (Other): BPH Surgical History: Cholecystectomy, prostatectomy Family History: No family hx of Cancer Social History: Non-Smoker. Denies ETOH Use. Denies Drug Use Lives In: Home 11/10/24: He reports feeling better, no fever, chills, nausea or vomit during the night. Patient complains of pain pressure like over the penis. Vital signs were reviewed, vital signs and labs are within normal limits. We are working on patient's discharge plan, due to UTI recurrence the patient will be sending home with home health for IV antibiotics and regular Kearns catheter exchange, social service is onboard, we will follow up with this patient closely. 11/11/24: No new complaints today, anxious about his ongoing infection. Urine culture and MRSA negative. We will do social service follow-up for home health midline for IV ceftriaxone and Kearns catheter. His BUN creatinine ratio is improving, today 21. His vitals are stable. 11/12/24: Patient was evaluated at bedside today. He complains of some discomfort at the kearns catheter site. Also complains not having a restful sleep. His vitals have been stable. director of home health services consulted as a part of discharge planning. ROS: Constitutional: No: Fever, Chills, Sweats, Weakness, Malaise Eyes: No: Pain, Vision change, Conjunctivae inflammation, Eyelid inflammation ENT: No: Ear pain, Ear discharge, Nose pain, Nose discharge Respiratory: No: Cough, Dry, Shortness of breath, SOB with excertion, Wheezing, Hemoptysis, Pleuritic Pain, Sputum, Wheezing Cardiovascular: No: Chest Pain, Palpitations, Orthopnea, Paroxysmal Noc. Dyspnea, Edema, Lt Headedness Gastrointestinal: Mild Suprapubic discomfort Genitourinary: Urinary catheter in place Skin: No: Rash, Lesions, Jaundice, Bruising Objective vital signs Vital Sign Date Time Temp Pulse Resp B/P (MAP) Pulse Ox O2 Delivery O2 Flow Rate FiO2 11/12/24 12:58 97.7 71 18 124/66 (85) 95 97.7 11/12/24 08:12 Room Air* 0 21 Total Intake and Output 11/11/24 11/11/24 11/12/24 15:00 23:00 07:00 Intake Total 650 ml 1195 ml 700 ml Output Total 250 ml Balance 650 ml 945 ml 700 ml medications Current Medications Medications Dose Ordered Sig/Nabila Route Start Time Stop Time Status Last Admin Dose Admin Nitroglycerin 0.4 mg Q5MINP PRN SL 11/08/24 22:00 Morphine Sulfate 2 mg Q30M PRN IV 11/08/24 22:00 Famotidine 20 mg DAILY PO 11/09/24 10:00 11/12/24 09:31 20 MG Enoxaparin Sodium 40 mg DAILY SC 11/09/24 10:00 11/12/24 09:31 40 MG Tamsulosin HCl 0.4 mg QPM PO 11/09/24 18:00 11/11/24 18:31 0.4 MG Sodium Chloride 1,000 ml @ 75 mls/hr [id number] IV 11/09/24 11:15 11/12/24 05:15 75 MLS/HR Cefepime HCl 50 ml @ 12.5 mls/hr Q12HR IV 11/09/24 22:00 11/12/24 09:31 12.5 MLS/HR Examination General Appearance: Alert, Oriented X3, Cooperative HEENT: Atraumatic, PERRLA, EOMI Respiratory: Clear to auscultation, Normal air movement Cardiovascular: Regular rate, Normal S1, Normal S2 Abdominal: Tenderness on deep palpation suprapubic area. Normal bowel sounds, Soft, No tenderness, No hepatospenomegaly Urinary catheter in place, draining clear urine, normal skin around the penile opening, no abnormal discharge Extremities: No clubbing, No cyanosis, No edema, Normal pulses Skin: No rashes Neuro: Cranial nerves intact, Normal speech, Normal tone, Sensation intact laboratory and microbiology Laboratory Tests 11/12/24 10:22 Test 11/12/24 10:22 Range/Units Serum Glucose 140 H 74-106 mg/dL Microbiology Date/Time Source Procedure Growth Status 11/09/24 06:48 Nose MRSA Screen - Final Complete 11/08/24 20:11 Blood Blood Culture - Preliminary NO GROWTH AFTER 72 HOURS OF INCUBATION. 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 -NS given in ED -Lactic acid 0.7 -UA: Turbid, leukocyte 3+, WBC plenty, bacteria few -WBCs: low, improving -Encourage oral fluid intake -U. culture negative -Continue IV cefepime for broad coverage. -SS consulted for discharge planning. Continue course. #Benign prostatic hyperplasia #Status post prostatectomy -Surgery 4 months ago [facility] -Tamsulosin 0.4 mg p.o. daily # Acute on chronic kidney injury, VMN -CT abd and pelvis wo contrast(10/30/2023) : No acute abdominal or pelvic findings.Hepatomegaly. Mild bilateral renal atrophy and cortical thinning. -S. creatinine 1.30 -Avoid nephrotoxic drugs -BUN/creatinine ratio= 27, now normalized GI prophylaxis: Famotidine 20 mg p.o. b.i.d. DVT prophylaxis: Lovenox 30 mg sc daily Goals of care discussed with patient at bedside for more than 25 minutes. Full code status. Case discussed with Dr. Gillespie Plan discussed with: Patient KRISTINDOMINIKMUNA [place] RESIDENT Nov 12, 2024 15:10
[2024-11-12] MEDS ORDERED: CEFP200T15 PO (15:20)
[2024-11-12 16:04] VITALS: TEMP 36.5
--- NOTE | 2024-11-12 16:14 | DVHDSRES ---
Discharge Summary Date of Admission Resident Creating Document: MUNA MUNOZ RESIDENT Nov 08, 2024 at 21:50 Date of Discharge: Nov 12, 2024 Admitting Diagnosis Urinary tract infection, likely due to indwelling Figueroa catheter Wounds: No large wounds. Figueroa catheter in place Labs/Diagnostic Data: Laboratory Results Test 11/12/24 10:22 11/08/24 20:11 11/08/24 18:53 White Blood Count 3.9 10^3/uL (4.4-10.8) Red Blood Count 4.70 10^6/uL (4.5-5.90) Hemoglobin 13.1 g/dL (13.5-17.5) Hematocrit 39.6 % (41.0-53.0) Mean Corpuscular Volume 84.2 fL (80.0-100.0) Mean Corpuscular Hemoglobin 27.8 pg (28.0-32.0) Mean Corpuscular Hemoglobin Concent 33.1 g/dL (32.0-36.0) Red Cell Distribution Width 15.1 % (11.8-14.3) Platelet Count 378 10^3/uL (140-450) Mean Platelet Volume 8.4 fL (6.9-10.8) Neutrophils (%) (Auto) 59.6 % (37.0-80.0) Lymphocytes (%) (Auto) 29.9 % (10.0-50.0) Monocytes (%) (Auto) 5.4 % (0.0-12.0) Eosinophils (%) (Auto) 3.1 % (0.0-7.0) Basophils (%) (Auto) 2.0 % (0.0-2.0) Neutrophils # (Auto) 2.3 10 ^3/uL (1.6-8.6) Lymphocytes # (Auto) 1.2 10 ^3/uL (0.4-5.4) Monocytes # (Auto) 0.2 10 ^3/uL (0-1.3) Eosinophils # (Auto) 0.1 10 ^3/uL (0-0.8) Basophils # (Auto) 0.1 10 ^3/uL (0-0.2) Nucleated Red Blood Cells 0.1 % Sodium Level 138 mmol/L (136-145) Potassium Level 4.0 mmol/L (3.5-5.1) Chloride Level 105 mmol/L (98-107) Carbon Dioxide Level 23 mmol/L (20-31) Anion Gap 10 (5-15) Blood Urea Nitrogen 20 mg/dL (9-23) Creatinine 1.15 mg/dL (0.700-1.30) Glomerular Filtration Rate Calc 63 mL/min (>90) BUN/Creatinine Ratio 17.4 (10.0-20.0) Serum Glucose 140 mg/dL (74-106) Calcium Level 9.7 mg/dL (8.7-10.4) Total Bilirubin 0.3 mg/dL (0.2-1.0) Aspartate Amino Transferase (AST) 25 U/L (13-40) Alanine Aminotransferase (ALT) 27 U/L (7-40) Alkaline Phosphatase 94 U/L (46-116) Total Protein 7.3 g/dL (5.7-8.2) Albumin 4.3 g/dL (3.2-4.8) Lactic Acid Level 0.7 mmol/L (0.4-2.0) Urine Color Colorless (Yellow) Urine Clarity Ex.turbid (Clear) Urine pH 5.5 (5.0-9.0) Urine Specific [place] 1.021 (1.001-1.035) Urine Protein 1+ (Negative) Urine Ketones Negative (Negative) Urine Blood 3+ /uL (Negative) Urine Nitrite Negative (Negative) Urine Bilirubin Negative (Negative) Urine Urobilinogen Normal mg/dL (Negative) Urine Leukocyte Esterase 3+ /uL (Negative) Urine RBC 277 /hpf (0 - 3) Urine WBC Clumps Present /hpf (None Seen) Urine Microscopic WBC 52 /HPF (0-3) Urine Squamous Epithelial Cells Few /hpf (<5) Urine Uric Acid Crystals Few /hpf (None Seen) Urine Bacteria Few /hpf (None Seen) Urine Mucus Few (None Seen) Urine Glucose Normal mg/dL (Normal) Other Laboratory Tests 11/12/24 10:22 Brief Hx & Hospital Course: Qasim Sevilla is a 84 years old male with past medical history benign prostate hyperplasia, prostate surgery 4 months ago come to emergency department with complain of suprapubic pain. He has a chronic indwelling Figueroa catheter, placed in place after his prostate sx ([facility]). He complains of pain and obstruction of urethra since Tuesday. In the ED, pain is 6/10, not radiating, no aggravating or relieving factor. Patient was seen on 11/02/2024 for the same complain, Figueroa catheter was changed in [facility] and the patient was placed on Cipro for a urinary tract infection. Figueroa catheter placed 4 months ago after prostate surgery in [facility]. Patient also complains of fever. He reports having foggy memories and has difficulty recalling all the events. History corroborated by . No associated nausea, vomiting, headache, chest pain SOB or any acute distress. Patient recent admission on 10/30/2023, blood and urine culture shows growth of E coli. He takes tamsulosin and omeprazole at home. During his stay his urine and blood culture came out negative. MRSA was negative. His BUN to creatinine ratio was elevated. Urine analysis showed turbid, leukocyte 3+, WBC plenty and bacteria few. During his stay we started IV cefepime for broad-coverage as well as IV fluids. He continued his home medications. His serum creatinine was 1.30, we avoided nephrotoxic drugs. Patient's kidney function eventually improved and his vitals have been stabilized. He will continue the p.o. antibiotic treatment at home. Condition at Discharge: Stable Final Diagnosis/Problems List Urinary tract infection, likely due to indwelling Figueroa catheter Lower urinary tract obstruction, likely due to urethral stricture Benign prostatic hyperplasia Status post prostatectomy Acute on chronic kidney injury, VMN Discharge Disposition: Home Discharge Instruct/Medications Diet: Renal Activity: No Restrictions, As Tolerated Follow Up/Referral: Please Follow-up with urology on November 19. Please follow with PCP in 1 week. Medications: Please take cefpodoxime proxetil till 1 tablet twice daily for 14 days Please continue home medications Care Plan: Care plan: Please take cefpodoxime proxetil till 1 tablet twice daily for 14 days Please continue your home medications. Please follow-up with urology on November 19, 2024 Please follow-up with PCP in 1 week. Scheduled Cefpodoxime Proxetil (Cefpodoxime Proxetil), 1 TAB PO BID Nitrofurantoin (Nitrofurantoin), 1 CAP PO BID Tramadol Hcl (Tramadol Hcl), 50 MG PO BID Triamcinolone Acetonide (Triamcinolone Acetonide), 1 APPLIC TOP BID Discontinued Medications Ciprofloxacin Hcl (Cipro), 500 MG PO BID Discontinued Reason: Auto Discontinued Discharge Statement: "Patient was advised to return to the ER or call 911 if any headaches, dizziness, shortness of breath, chest pain, abdominal pain, bleeding, fevers, or worsening of medical condition. Patient was counseled about treatment plan, medications, possible side effects, patientverbalized understanding. All questions were answered to the best of my ability. This discharge took greater then 30 minutes in planning, reviewing documentation, counseling the patient, and discussing with other team members." ASSESSMENT ASSESSMENT Assessment Urinary tract infection, likely due to indwelling Figueroa catheter Lower urinary tract obstruction, likely due to urethral stricture Benign prostatic hyperplasia Status post prostatectomy Acute on chronic kidney injury, VMN Date of Service: Nov 12, 2024 Billing Provider: SUN ARAMBULA MD Common Visit Codes: 18106-JND/OBS DISCH DAY >30min MUNA MUNOZ RESIDENT Nov 12, 2024 16:14 SUN ARAMBULA MD Nov 12, 2024 21:46
== END 2024-11-12 16:42 | disposition home or self-care (01) | DRG 698 ==
LOC: ER 16:35 → OVERFLOW 21:50 → WEST WING 23:57
PROVIDERS: ADMIT Student in an Organized Health Care Education/Training Program; ATTEND Student in an Organized Health Care Education/Training Program
DX: T83.511A Infection and inflammatory reaction due to indwelling urethral catheter, initial encounter (principal); N17.0 Acute kidney failure with tubular necrosis; N18.9 Chronic kidney disease, unspecified; N26.1 Atrophy of kidney (terminal); N40.0 Benign prostatic hyperplasia without lower urinary tract symptoms; E86.0 Dehydration; Z79.899 Other long term (current) drug therapy; Z79.2 Long term (current) use of antibiotics; Z90.49 Acquired absence of other specified parts of digestive tract; Y84.9 Medical procedure, unspecified as the cause of abnormal reaction of the patient, or of later complication, without mention of misadventure at the time of the procedure; Y92.89 Other specified places as the place of occurrence of the external cause
CPT/HCPCS: 36415; 80048; 80053; 81001; 83605; 85025; 87040; 87081; 87086; 96365; G0378